=== PATIENT | female | born 1985 | race Hispanic/Latino ===

== ENCOUNTER → 2016-05-30 | Outpatient (CLI) | payer OTHER ==
--- NOTE | 2016-05-30 12:46 | Diagnostic Imaging Report ---
INDICATION: survey. COMPARISON: 03/23/2016. FINDINGS: A winters gestation is currently in breech position. Anterior placenta appears normal. There is no abruption or previa. Amniotic fluid volume visually appears to be within normal limits. No pathological finding at the anatomical survey revealed. Gestation measures 19 weeks 6 days reflecting normal growth from initial study. IMPRESSION: Winters gestation measuring 19 weeks 6 days is in breech position with a normal anatomical survey. Dictated by: Dictated on workstation # [id number]
== END ==
LOC: RAD 09:30
PROVIDERS: ATTEND Family Medicine
DX: Z34.92 Encounter for supervision of normal pregnancy, unspecified, second trimester (principal)
CPT/HCPCS: 76805

== ENCOUNTER 2016-08-23 05:04 | Outpatient (CLI) | payer OTHER ==
[~2016-08-23] VITALS: Ht 172.7 cm; Wt 117.5 kg
[2016-08-23 05:28] VITALS: BP 131/75
[2016-08-23 05:40] LABS: BILIRUBIN,URINE NEGATIVE (NEGATIVE); KETONES,URINE NEGATIVE (NEGATIVE); LEUKOCYTE ESTERASE ,URINE NEGATIVE (NEGATIVE); NITRITE,URINE NEGATIVE (NEGATIVE); PH,URINE 7 (5-9); PROTEIN,URINE NEGATIVE (NEGATIVE); UROBILINOGEN,URINE NORMAL (NORMAL)
[2016-08-23] MEDS ORDERED: morphine INJ 4 MG/ML 1 ML (VIAL/SYRINGE) IVP PRN (06:00)
[2016-08-23] MEDS ORDERED: NS IV 1000 ML 1,000 ML ONE (06:04)
[2016-08-23] MEDS ORDERED: morphine PF (DURAMORPH) 10 MG/10 ML AMP ONE (06:20)
[2016-08-23 06:27] LABS: BASOPHILS % (AUTO) 0 % (0-10); EOSINOPHILS # (AUTO) 0.1 10^3/uL (0.0-0.3); EOSINOPHILS % (AUTO) 1 % (0-10); LYMPHOCYTES # (AUTO) 1.4 X 10^3 (1.0-4.0); LYMPHOCYTES % (AUTO) 13 % (12-44); MEAN CORPUSCULAR HEMOGLOBIN 30 PG (25-34); MEAN CORPUSCULAR HGB CONC 34 G/DL (32-36); MEAN CORPUSCULAR VOLUME 90 FL (80-99); MONOCYTES # (AUTO) 0.8 X 10^3 (0.0-1.0); MONOCYTES % (AUTO) 7 % (0-12); NEUTROPHILS # (AUTO) 8.4 X 10^3 (1.8-7.8); NEUTROPHILS % (AUTO) 79 % (42-75); PLATELET COUNT 222 10^3/uL (130-400); RED CELL DISTRIBUTION WIDTH 13.4 % (10.0-14.5); WHITE BLOOD COUNT 10.7 10^3/uL (4.3-11.0)
[2016-08-23 06:47] LABS: ALANINE AMINOTRANSFERASE 16 U/L (0-55); ALBUMIN 3.1 G/DL (3.2-4.5); ANION GAP 8 MMOL/L (5-14); ASPARTATE AMINO TRANSFERASE 14 U/L (5-34); BILIRUBIN,TOTAL 0.2 MG/DL (0.1-1.0); BLOOD UREA NITROGEN 12 MG/DL (7-18); BUN/CREATININE RATIO 20; CALCIUM 8.6 MG/DL (8.5-10.1); CARBON DIOXIDE 21 MMOL/L (21-32); CHLORIDE 109 MMOL/L (98-107); CREATININE SERUM 0.61 MG/DL (0.60-1.30); GFR ESTIMATED > 60; GLUCOSE 112 MG/DL (70-105); POTASSIUM 3.8 MMOL/L (3.6-5.0); SODIUM 138 MMOL/L (135-145); TOTAL PROTEIN 5.9 G/DL (6.4-8.2)
[2016-08-23 07:43] VITALS: BP 110/62
--- NOTE | 2016-08-23 10:08 | Clinic Account Progress/Dx ---
Clinic Account Progress/Dx DIAGNOSIS: Diagnosis 1. 31w1d GA 2. R flank pain - resolved MIKE SANTOS DO Aug 23, 2016 10:08
--- NOTE | 2016-08-23 10:10 | Discharge Instructions ---
Discharge Inst-[facility] Follow Up/Instructions Goal/Follow Up: With Dr. Khan 09/05/16 as scheduled or sooner as needed. Activity Activity: Activity as Tolerated Diet Discharge Diet: No Restrictions Symptoms to Report to : Pain Increased, Fever Over 101 Degrees F, Urination Difficulty For Any Problems or Questions: Contact Your Physician MIKE SANTOS DO Aug 23, 2016 10:09
== END 2016-08-23 10:20 | disposition home or self-care (01) ==
LOC: WSo 05:04 → LDRP 05:05 → WSo 10:20
PROVIDERS: ATTEND Family Medicine
DX: O99.89 Other specified diseases and conditions complicating pregnancy, childbirth and the puerperium (principal); R10.84 Generalized abdominal pain; Z3A.31 31 weeks gestation of pregnancy
CPT/HCPCS: 36415; 80053; 81000; 85025; 87088; 96361; 96374; 99213

== ENCOUNTER 2016-10-21 07:08 | Outpatient (CLI) | payer OTHER ==
[~2016-10-21] VITALS: Ht 172.7 cm; Wt 121.6 kg
[2016-10-21 07:10] VITALS: BP 129/81
--- NOTE | 2016-10-22 13:30 | Physician Query-Final Dx ---
ANJELICA OLSON 10/22/16 1330: Clinic Account Progress/Dx Physician Query: Please give diagnosis Date of Service Oct 21, 2016 at 07:08 KARINA HUGHES MD 10/30/163: Clinic Account Progress/Dx DIAGNOSIS: Diagnosis 39 weeks gestation Contractions without active labor ANJELICA OLSON Oct 22, 2016 13:30 KARINA HUGHES MD Oct 30, 2016 20:53
== END 2016-10-21 08:05 | disposition home or self-care (01) ==
LOC: WSo 07:08 → LDRP 07:09 → WSo 08:05
PROVIDERS: ATTEND Family Medicine
DX: O47.1 False labor at or after 37 completed weeks of gestation (principal); Z3A.39 39 weeks gestation of pregnancy
CPT/HCPCS: 99213

== ENCOUNTER 2016-10-23 01:26 | Inpatient (IN) | payer OTHER ==
[2016-10-23] MEDS ORDERED: MINERAL OIL CONCENTRATE 99.9% 15 ML UDC TOP PRN (09:15)
[2016-10-23] MEDS ORDERED: CATHETER FLUSH 10 ML SYR IV PRN (09:15)
[2016-10-23] MEDS ORDERED: OXYTOCIN/NORMAL SALINE 500 ML IV SCH ×2 (09:15→19:38)
[2016-10-23] MEDS ORDERED: D5 LR IV SOLUTION 1,000 ML IV ONE (09:21)
[2016-10-23] MEDS: D5 LR IV SOLUTION 1,000 ML IV SCH ×2 (09:29→17:22)
[2016-10-23] MEDS ORDERED: LIDOCAINE/EPI 1%-1:200,000 (XYLOCAINE) 30 ML VIAL INJ PRN (09:30)
[2016-10-23] MEDS ORDERED: PREN1TAB86 PO (09:34)
[2016-10-23] MEDS ORDERED: SUFENTA 0.6MCG/ML BUPIVA 0.125 100 ML ONE (09:52)
[2016-10-23] MEDS ORDERED: LACTATED RINGERS 1,000 ML IV ONE ×2 (09:52→11:04)
[2016-10-23] MEDS ORDERED: BUPIVACAINE 0.25% 30 ML (SENSORCAINE) VIAL ONE (10:32)
[2016-10-23] MEDS ORDERED: NALOXONE 0.4 MG/ML 1 ML (NARCAN) VIAL IV PRN (11:15)
[2016-10-23] MEDS ORDERED: EPIDURAL (SUFENTA 0.6MCG/ML BUPIVA 0.125%) 100 ML BAG EPI SCH (11:15)
[2016-10-23] MEDS ORDERED: ONDANSETRON 4 MG/2 ML (SDV) Z0FRAN IV PRN (11:15)
[2016-10-23] MEDS ORDERED: ACETAMINOPHEN 500 MG TAB (TYLENOL) PO ONE (15:30)
[2016-10-23] MEDS ORDERED: LACTATED RINGERS 1,000 ML IV PRN (17:39)
[2016-10-23] MEDS ORDERED: CITRIC ACID/SOB CIT (BICITRA) 30 ML UDC PO ONE (17:45)
[2016-10-23] MEDS ORDERED: AZITHROMYCIN INJECTION 500 MG in NS (IVPB) 250 ML IV ONE ×4 (17:45)
[2016-10-23] MEDS ORDERED: METOCLOPRAMIDE INJ 10 MG/2 ML (REGLAN) IV ONE (17:45)
[2016-10-23] MEDS ORDERED: FAMOTIDINE 20MG/2ML IV (PEPCID) IV ONE (17:45)
[2016-10-23] MEDS ORDERED: ceFAZolin 2 GM/50 ML NS 50 ML IV ONE ×2 (17:45)
[2016-10-23] MEDS ORDERED: AZITHROMYCIN 500 MG (ZITHROMAX) VIAL ONE (17:54)
[2016-10-23] MEDS ORDERED: NS (IVPB) 250 ML ONE (17:59)
[2016-10-23] MEDS ORDERED: fentaNYL INJECTION 100 MCG/2 ML AMP ONE (18:11)
[2016-10-23] MEDS ORDERED: LIDOCAINE PF 2% 10 ML (XYLOCAINE) AMP ONE (18:11)
[2016-10-23] MEDS ORDERED: BUPIVACAINE 0.5% 30 ML (SENSORCAINE) VIAL ONE (18:11)
[2016-10-23] MEDS ORDERED: OXYTOCIN/NORMAL SALINE 500 ML IV ONE ×2 (18:13)
[2016-10-23] MEDS ORDERED: ONDANSETRON 4 MG/2 ML (SDV) Z0FRAN ONE (18:13)
[2016-10-23] MEDS: KETOROLAC 30 MG/ML VIAL IVP SCH (19:30)
[2016-10-23] MEDS ORDERED: D5 LR IV SOLUTION 1,000 ML IV SCH (19:38)
[2016-10-23] MEDS ORDERED: TETANUS,DIPTH,PERTUSS P/F (BOOSTRIX) 0.5 ML VIAL IM SCH (19:45)
[2016-10-23] MEDS ORDERED: MEASLES,MUMPS,RUBELLA 1 EA INJ SC SCH (19:45)
[2016-10-23] MEDS ORDERED: ONDANSETRON 4 MG/2 ML (SDV) Z0FRAN IVP PRN (19:45)
[2016-10-23] MEDS ORDERED: morphine INJ 10 MG/ML 1ML (SYR OR VIAL) IVP PRN (19:45)
[2016-10-23] MEDS ORDERED: MEPERIDINE (DEMEROL) INJ 50 MG/ML IVP PRN (19:45)
[2016-10-23] MEDS ORDERED: HYDROmorphone (DILAUDID) 2 MG/ML VIAL IVP PRN (19:45)
[2016-10-23] MEDS ORDERED: CATHETER FLUSH 10 ML SYR IV SCH (22:00)
[2016-10-24] MEDS: HYDROcodone/APAP 5 MG/325 MG (LORTAB) TAB PO PRN ×4 (00:53→22:14)
[2016-10-24] MEDS: KETOROLAC 30 MG/ML VIAL IVP SCH ×3 (00:53→19:55)
[2016-10-24] MEDS: DOCUSATE SODIUM 100 MG (COLACE) CAP PO SCH ×3 (00:53→20:19)
[2016-10-24] MEDS: ENOXAPARIN 40 MG/0.4 ML (LOVENOX) SYR SC SCH (10:41)
[2016-10-24] MEDS: FERROUS SULF 325 MG (IRON) TAB PO SCH (10:41)
[2016-10-24] MEDS ORDERED: IBUPROFEN 600 MG (MOTRIN) TAB PO ONE (13:30)
[2016-10-24] MEDS: IBUPROFEN 600 MG (MOTRIN) TAB PO SCH ×2 (14:02→20:19)
[2016-10-25] MEDS: HYDROcodone/APAP 5 MG/325 MG (LORTAB) TAB PO PRN (01:49)
[2016-10-25] MEDS: IBUPROFEN 600 MG (MOTRIN) TAB PO SCH ×2 (01:49→10:02)
[2016-10-25] MEDS ORDERED: DOCU100C37 PO (06:19)
[2016-10-25] MEDS ORDERED: FERR-74 PO (06:19)
[2016-10-25] MEDS ORDERED: IBUP-1773 PO (06:19)
[2016-10-25] MEDS ORDERED: HYDR-3812 PO (09:35)
[2016-10-25] MEDS: FERROUS SULF 325 MG (IRON) TAB PO SCH (10:01)
[2016-10-25] MEDS: DOCUSATE SODIUM 100 MG (COLACE) CAP PO SCH (10:01)
[2016-10-25] MEDS: ENOXAPARIN 40 MG/0.4 ML (LOVENOX) SYR SC SCH (10:02)
== END 2016-10-25 14:15 | disposition home or self-care (01) | DRG 765 ==
DX: O99.213 Obesity complicating pregnancy, third trimester (principal); E66.9 Obesity, unspecified; Z68.41 Body mass index [BMI] 40.0-44.9, adult; O99.03 Anemia complicating the puerperium; D62 Acute posthemorrhagic anemia; O33.9 Maternal care for disproportion, unspecified; Z3A.40 40 weeks gestation of pregnancy; Z37.0 Single live birth

== ENCOUNTER 2016-11-13 23:33 | Emergency (ER) | payer SELFPAY ==
[~2016-11-13] VITALS: Ht 165.1 cm; Wt 108.0 kg
[~2016-11-13 23:33] MED LIST: DOCU100C37 PO; FERR-74 PO; HYDR-3812 PO; IBUP-1773 PO; PREN1TAB86 PO
[2016-11-14] MEDS ORDERED: ANTACID SUSP 30 ML UDC (MYLANTA) PO ONE (01:15)
[2016-11-14] MEDS ORDERED: LIDOCAINE 2% VISCOUS 15 ML UDC PO ONE (01:15)
[2016-11-14] MEDS ORDERED: OMEP20TA7 PO (01:59)
--- NOTE | 2016-11-14 01:59 | ED Abdominal Pain ---
General Chief Complaint: Abdominal/GI Problems Stated Complaint: UPPER ABD PAIN Nursing Triage Note: PT TO ED 8 W/ C/O UPPER ABD/EPIGASTRIC PAIN ONSET EARLIER TODAY. PT REPORTS HAS BEEN ON ET OFF SINCE HAVING C SECTION X3 WKS AGO. STATES PAIN RADIATES THROUGH TO BACK. NO OTHER C/O VOICED Sepsis Screen: No Definite Risk Source of Information: Patient Exam Limitations: No Limitations History of Present Illness Time Seen By Provider: 00:40 Initial Comments This 31-year-old young lady presents to emergency room with epigastric pain that started about 3 weeks ago after having a section. Pain feels better after eating. She has no nausea or vomiting. No diarrhea or constipation. Last bowel movement was around noon and was normal. She is afebrile. She took one ibuprofen at 22:00 which was not helpful. Last food was potatoes and beans at 18:00. Patient was seen and examined with REN Malave. Allergies and Home Medications Allergies Coded Allergies: No Known Drug Allergies (Unverified , 08/23/16) Home Medications Docusate Sodium 100 Mg Capsule, 100 MG PO BID, #60 Prescribed by: RAJESH RICCI on 10/25/16 0619 Ferrous Sulfate 325 Mg Tablet, 325 MG PO DAILY@0900, #60 Prescribed by: RAJESH RICCI on 10/25/16 0619 Hydrocodone/Acetaminophen 1 Each Tablet, 1-2 TAB PO Q4H PRN for PAIN-MODERATE, # 45 Prescribed by: RAJESH RICCI on 10/25/16 0935 Ibuprofen 600 Mg Tablet, 600 MG PO Q6H, #60 Prescribed by: RAJESH RICCI on 10/25/16 0619 Omeprazole 20 Mg Tablet.dr, 20 MG PO BID, #30 Prescribed by: WILIAM MARIN on 11/14/16 0159 Vit W-Ca,Fe,FA(<1 mg) 1 Each Tablet, 1 EACH PO DAILY, (Reported) Review of Systems Constitutional: no symptoms reported EENTM: No Symptoms Reported Respiratory: No Symptoms Reported Cardiovascular: No Symptoms Reported Gastrointestinal: See HPI Genitourinary: No Symptoms Reported Musculoskeletal: no symptoms reported Skin: no symptoms reported Psychiatric/Neurological: No Symptoms Reported Endocrine: No Symptoms Reported Past Hahazbj-Usbeho-Uqelww Hx Patient Social History Alcohol Use: Denies Use Recreational Drug Use: No Smoking Status: Never a Smoker 2nd Hand Smoke Exposure: No Recent Foreign Travel: No Contact w/Someone Who Travel: No Recent Infectious Disease Expo: No Recent Hopitalizations: Yes Immunizations Up To Date Tetanus Booster (TDap): Less than 5yrs Seasonal Allergies Seasonal Allergies: No Surgeries HX Surgeries: Yes Surgeries: Section Respiratory Hx Respiratory Disorders: No Cardiovascular Hx Cardiac Disorders: No Neurological Hx Neurological Disorders: No Reproductive System : No Sexually Transmitted Disease: No HIV/AIDS: No Female Reproductive Disorders: Denies Genitourinary Hx Genitourinary Disorders: Yes Genitourinary Disorders: Kidney Infection Gastrointestinal Hx Gastrointestinal Disorders: No Musculoskeletal Hx Musculoskeletal Disorders: No Endocrine Hx Endocrine Disorders: No HEENT HX ENT Disorders: No Loss of Vision: Denies Hearing Impairment: Denies Cancer Hx Cancer: No Blood Transfusions Adverse Reaction to a Blood Tr: No Family Medical History Family Medial History: Patient reports no known family medical history. Physical Exam Vital Signs VS - Last 72 Hours, by Label 11/14/16 11/14/16 00:05 02:17 Temp 97.0 Pulse 80 86 Resp 20 18 B/P (MAP) 140/96 Pulse Ox 99 99 O2 Delivery Room Air Room Air Capillary Refill : Less Than 3 Seconds General Appearance: WD/WN, no apparent distress HEENT: PERRL/EOMI, normal ENT inspection, pharynx normal Neck: normal inspection Respiratory: lungs clear, normal breath sounds, no respiratory distress, no accessory muscle use Cardiovascular: regular rate, rhythm, no edema, no murmur Gastrointestinal: normal bowel sounds, soft, tenderness (Epigastric) Extremities: normal inspection, no pedal edema Back: normal inspection Neurologic/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 nml as tested, no motor/sensory deficits, alert, normal mood/affect, oriented x 3 Skin: normal color, warm/dry Progress/Results/Core Measures Results/Orders My Orders Orders - WILIAM VIDAL MD Lidocaine 2% Viscous 15 Ml (Xylocaine Vi (11/14/16 01:15) Antacid Suspension (Mylanta Suspension (11/14/16 01:15) Pantoprazole Tablet (Protonix Tablet) (11/14/16 02:00) Medications Given in ED Current Medications Medications Dose Ordered Sig/Jayesh Route Start Time Stop Time Status Last Admin Dose Admin Al Hydrox/Mg Hydrox/Simethicone 30 ml ONCE ONCE PO 11/14/16 01:15 11/14/16 01:16 DC 11/14/16 01:30 30 ML Lidocaine HCl 15 ml ONCE ONCE PO 11/14/16 01:15 11/14/16 01:16 DC 11/14/16 01:30 15 ML Pantoprazole Sodium 40 mg ONCE ONCE PO 11/14/16 02:00 11/14/16 02:01 DC 11/14/16 02:17 40 MG Vital Signs/I&O Vital Sign - Last 12Hours 11/14/16 11/14/16 00:05 02:17 Temp 97.0 Pulse 80 86 Resp 20 18 B/P (MAP) 140/96 Pulse Ox 99 99 O2 Delivery Room Air Room Air Blood Pressure Mean: 111 Progress Note : Progress Note Pain improved from 10 down to 5/10 after GI cocktail. Protonix was given prior to dismissal. See discharge instructions. Departure Impression Impression: Primary Impression: Epigastric pain Disposition: HOME, SELF-CARE Condition: Improved Departure-Patient Inst. Decision time for Depature: 01:50 Referrals: NILE MEDEL MD (PCP/Family) Primary Care Physician Patient Instructions: Acute Abdomen (Belly Pain), Adult (DC), Gastritis (DC) Add. Discharge Instructions: Take omeprazole as prescribed. Avoid the following: Large meals, eating close to bedtime, carbonation, caffeine , chocolate, tobacco products, alcohol, spicy foods, tomato products, citrus fruits and juices, mints, NSAID medications such as ibuprofen or naproxen, or anything else you know irritates your stomach. Follow-up with your doctor in 1-2 weeks. Return to the emergency room if symptoms worsen. All discharge instructions reviewed with patient and/or family. Voiced understanding. Scripts Omeprazole (Omeprazole) 20 Mg Tablet. 20 MG PO BID, #30 TAB Prov: WILIAM VIDAL MD 11/14/16 WILIAM VIDAL MD Nov 14, 2016 01:59
[2016-11-14] MEDS ORDERED: PANTOPRAZOLE 40 MG (PROTONIX) TAB PO ONE (02:00)
[2016-11-14 02:17] VITALS: BP 137/86
== END 2016-11-14 02:17 | disposition home or self-care (01) ==
LOC: EDUNIT# 23:33 → ER 23:36
DX: O99.89 Other specified diseases and conditions complicating pregnancy, childbirth and the puerperium (principal); R10.13 Epigastric pain; Z87.59 Personal history of other complications of pregnancy, childbirth and the puerperium
CPT/HCPCS: 99283

== ENCOUNTER 2016-11-24 02:26 | Inpatient (IN) | payer OTHER ==
[~2016-11-24] VITALS: Ht 167.6 cm; Wt 107.5 kg
[~2016-11-24 02:26] MED LIST changes: +OMEP20TA7 PO
[2016-11-24] MEDS ORDERED: SUCR1TAB (02:35)
[2016-11-24] MEDS ORDERED: FAMOTIDINE 20MG/2ML IV (PEPCID) IV STA (02:44)
[2016-11-24] MEDS ORDERED: NS IV 1000 ML 1,000 ML IV STA (02:44)
[2016-11-24 03:04] LABS: BASOPHILS % (AUTO) 0 % (0-10); EOSINOPHILS # (AUTO) 0.1 10^3/uL (0.0-0.3); EOSINOPHILS % (AUTO) 2 % (0-10); LYMPHOCYTES # (AUTO) 1.4 X 10^3 (1.0-4.0); LYMPHOCYTES % (AUTO) 27 % (12-44); MEAN CORPUSCULAR HEMOGLOBIN 29 PG (25-34); MEAN CORPUSCULAR HGB CONC 33 G/DL (32-36); MEAN CORPUSCULAR VOLUME 89 FL (80-99); MEAN PLATELET VOLUME 9.5 FL (7.4-10.4); MONOCYTES # (AUTO) 0.4 X 10^3 (0.0-1.0); MONOCYTES % (AUTO) 8 % (0-12); NEUTROPHILS # (AUTO) 3.2 X 10^3 (1.8-7.8); NEUTROPHILS % (AUTO) 63 % (42-75); PLATELET COUNT 271 10^3/uL (130-400); RED BLOOD COUNT 4.55 10^6/uL (4.35-5.85); RED CELL DISTRIBUTION WIDTH 13.3 % (10.0-14.5); WHITE BLOOD COUNT 5.1 10^3/uL (4.3-11.0)
[2016-11-24 03:24] LABS: ALANINE AMINOTRANSFERASE 711 U/L (0-55); AMYLASE 33 U/L (25-125); ANION GAP 12 MMOL/L (5-14); ASPARTATE AMINO TRANSFERASE 773 U/L (5-34); BILIRUBIN,TOTAL 1.1 MG/DL (0.1-1.0); BLOOD UREA NITROGEN 7 MG/DL (7-18); BUN/CREATININE RATIO 10; CARBON DIOXIDE 21 MMOL/L (21-32); CHLORIDE 107 MMOL/L (98-107); CREATININE SERUM 0.68 MG/DL (0.60-1.30); GFR ESTIMATED > 60; GLUCOSE 108 MG/DL (70-105); LIPASE 21 U/L (8-78); POTASSIUM 3.8 MMOL/L (3.6-5.0); SODIUM 140 MMOL/L (135-145)
--- NOTE | 2016-11-24 03:44 | ED GI ---
General Chief Complaint: Abdominal/GI Problems Stated Complaint: ABD PAIN Nursing Triage Note: c/o epigastric pain patient reports was evaluated here for same pain previosly Sepsis Screen: No Definite Risk Source of Information: Patient Exam Limitations: No Limitations History of Present Illness Time Seen By Provider: 02:55 Initial Comments Here with epigastric pain that has been going on for the last week to 10 days. Does not report that it is worse with meals but nothing is making it better and day today it is getting worse. Pain is greatest in the right upper quadrant. She is status post delivery of a baby one month ago. Reports nausea but no vomiting. She is currently on omeprazole and Carafate or Zantac. Denies fever or chills. Timing/Duration: 1 Week, Getting Worse Severity/Quality: Moderate, Severe, Aching, Burning, Sharp Location: RUQ, Epigastric Radiation: No Radiation Activities at Onset: None Modifying Factors: Worsens With Eating Associated Symptoms: No Back Pain, No Chest Pain, No Fever/Chills, Nausea/ Vomiting, No Shortness of Air, No Swelling/Mass in Abdomen, No Weakness Allergies and Home Medications Allergies Coded Allergies: No Known Drug Allergies (Unverified , 08/23/16) Home Medications Omeprazole 20 Mg Tablet.dr, 20 MG PO BID, #30 Prescribed by: WILIAM MARIN on 11/14/16 0159 Sucralfate 1 Gm Tablet, #60 (Reported) Review of Systems Constitutional: see HPI, No chills, No fever EENTM: No Symptoms Reported Respiratory: No Symptoms Reported Cardiovascular: No Symptoms Reported, Denies Chest Pain, Denies Edema Gastrointestinal: See HPI, Abdominal Pain, Denies Diarrhea, Nausea, Denies Vomiting Genitourinary: No Symptoms Reported Musculoskeletal: no symptoms reported Skin: no symptoms reported All Other Systems Reviewed Negative Unless Noted: Yes Past Szhznag-Lcubow-Rpmqff Hx Patient Social History Alcohol Use: Denies Use Recreational Drug Use: No Smoking Status: Never a Smoker 2nd Hand Smoke Exposure: No Recent Foreign Travel: No Contact w/Someone Who Travel: No Recent Infectious Disease Expo: No Recent Hopitalizations: Yes Immunizations Up To Date Tetanus Booster (TDap): Less than 5yrs Seasonal Allergies Seasonal Allergies: No Surgeries HX Surgeries: Yes Surgeries: Section Respiratory Hx Respiratory Disorders: No Cardiovascular Hx Cardiac Disorders: No Neurological Hx Neurological Disorders: No Reproductive System Sexually Transmitted Disease: No HIV/AIDS: No Female Reproductive Disorders: Denies Genitourinary Hx Genitourinary Disorders: Yes Genitourinary Disorders: Kidney Infection Gastrointestinal Hx Gastrointestinal Disorders: No Musculoskeletal Hx Musculoskeletal Disorders: No Endocrine Hx Endocrine Disorders: No HEENT HX ENT Disorders: No Loss of Vision: Denies Hearing Impairment: Denies Cancer Hx Cancer: No Blood Transfusions Adverse Reaction to a Blood Tr: No Reviewed Nursing Assessment Reviewed/Agree w Nursing PMH: Yes Family Medical History Significant Family History: No Pertinent Family Hx Family Medial History: Patient reports no known family medical history. Physical Exam Vital Signs VS - Last 72 Hours, by Label 11/24/16 02:32 Temp 98.2 Pulse 67 Resp 18 B/P (MAP) 110/85 Pulse Ox 98 Capillary Refill : Less Than 3 Seconds General Appearance: WD/WN, no apparent distress HEENT: PERRL/EOMI, pharynx normal Neck: full range of motion, supple Respiratory: lungs clear, normal breath sounds Cardiovascular: regular rate, rhythm, no murmur Peripheral Pulses: 2+ Dorsalis Pedis (R), 2+ Left Dors-Pedis (L), 2+ Radial Pulses (R), 2+ Radial Pulses (L) Gastrointestinal: soft, No guarding, No rebound, tenderness (right upper quadrant and epigastric) Extremities: non-tender, normal inspection Back: normal inspection, no CVA tenderness, no vertebral tenderness Neurologic/Psychiatric: alert, oriented x 3 Skin: normal color, warm/dry Progress/Results/Core Measures Results/Orders Lab Results Laboratory Tests Test 11/24/16 02:55 Range/Units White Blood Count 5.1 4.3-11.0 10^3/uL Red Blood Count 4.55 4.35-5.85 10^6/uL Hemoglobin 13.1 11.5-16.0 G/DL Hematocrit 40 35-52 % Mean Corpuscular Volume 89 80-99 FL Mean Corpuscular Hemoglobin 29 25-34 PG Mean Corpuscular Hemoglobin Concent 33 32-36 G/DL Red Cell Distribution Width 13.3 10.0-14.5 % Platelet Count 271 130-400 10^3/uL Mean Platelet Volume 9.5 7.4-10.4 FL Neutrophils (%) (Auto) 63 42-75 % Lymphocytes (%) (Auto) 27 12-44 % Monocytes (%) (Auto) 8 0-12 % Eosinophils (%) (Auto) 2 0-10 % Basophils (%) (Auto) 0 0-10 % Neutrophils # (Auto) 3.2 1.8-7.8 X 10^3 Lymphocytes # (Auto) 1.4 1.0-4.0 X 10^3 Monocytes # (Auto) 0.4 0.0-1.0 X 10^3 Eosinophils # (Auto) 0.1 0.0-0.3 10^3/uL Basophils # (Auto) 0.0 0.0-0.1 10^3/uL Sodium Level 140 135-145 MMOL/L Potassium Level 3.8 3.6-5.0 MMOL/L Chloride Level 107 98-107 MMOL/L Carbon Dioxide Level 21 21-32 MMOL/L Anion Gap 12 5-14 MMOL/L Blood Urea Nitrogen 7 7-18 MG/DL Creatinine 0.68 0.60-1.30 MG/DL Estimat Glomerular Filtration Rate > 60 BUN/Creatinine Ratio 10 Glucose Level 108 H 70-105 MG/DL Calcium Level 9.0 8.5-10.1 MG/DL Total Bilirubin 1.1 H 0.1-1.0 MG/DL Aspartate Amino Transf (AST/SGOT) 773 H 5-34 U/L Alanine Aminotransferase (ALT/SGPT) 711 H 0-55 U/L Alkaline Phosphatase 405 H 40-136 U/L Total Protein 7.0 6.4-8.2 GM/DL Albumin 4.0 3.2-4.5 GM/DL Amylase Level 33 25-125 U/L Lipase 21 8-78 U/L My Orders Orders - STEPHEN BARCENAS MD Amylase (11/24/16 02:44) Cbc With Automated Diff (11/24/16 02:44) Comprehensive Metabolic Panel (11/24/16 02:44) Lipase (11/24/16 02:44) Ns Iv 1000 Ml (Sodium Chloride 0.9%) (11/24/16 02:44) Famotidine Injection (Pepcid Injection) (11/24/16 02:44) Saline Lock/Iv-Start (11/24/16 02:44) Us Gallbladder [id number] (11/24/16 03:32) Fentanyl Injection (Sublimaze Injection (11/24/16 04:35) Zofran Iv (11/24/16 04:45) Vital Signs/I&O Vital Sign - Last 12Hours 11/24/16 02:32 Temp 98.2 Pulse 67 Resp 18 B/P (MAP) 110/85 Pulse Ox 98 Blood Pressure Mean: 93 Progress Note : Progress Note Seen and evaluated. IV, labs, normal saline 1 L bolus and Pepcid 20 mg IV ordered. Bedside ultrasound done and there is concerns for gallstones within the bladder neck. Labs do not indicate liver dysfunction. Formal ultrasound ordered. Monitor patient. 0430: I discussed the case with Dr. Reyes as formal ultrasound does show multiple stones as well as ductile dilation of 1 cm. There is no pericholecystic fluid. He would like patient to be admitted with likely surgery tomorrow. I did discuss this with the patient who agrees. Fentanyl 75 g IV ordered and Zofran 4 mg IV ordered for pain and nausea. Admit , inpatient status. Patient agrees to plan. Diagnostic Imaging Diagonstic Imaging: Ultrasound Plain Films/CT/US/NM/MRI: abdomen Comments Gallbladder ultrasound shows gallstones and dilated bile duct without pericholecystic fluid or gallbladder wall thickening per preliminary reading. Departure Communication Time/Spoke to Admitting Phy: 04:27 Impression Impression: Primary Impression: Cholelithiasis and cholecystitis with obstruction Qualified Codes: K80.01 - Calculus of gallbladder with acute cholecystitis with obstruction Additional Impression: Transaminitis Disposition: ADMITTED INPATIENT Condition: Stable Decision to Admit Reason: Admit from ER (General) Decision to Admit/Date: Nov 24, 2016 Time/Decision to Admit Time: 04:27 Departure-Patient Inst. Referrals: NILE MEDEL MD (PCP/Family) Primary Care Physician STEPHEN BARCENAS MD Nov 24, 2016 03:43
[2016-11-24] MEDS ORDERED: fentaNYL INJECTION 100 MCG/2 ML AMP IVP STA (04:35)
[2016-11-24] MEDS ORDERED: ONDANSETRON 4 MG/2 ML (SDV) Z0FRAN IVP ONE (04:45)
[2016-11-24] MEDS ORDERED: CATHETER FLUSH 10 ML SYR IV PRN (05:30)
[2016-11-24] MEDS: CATHETER FLUSH 10 ML SYR IV SCH ×3 (05:30→22:29)
[2016-11-24] MEDS: NS IV 1000 ML 1,000 ML IV SCH ×2 (05:30→15:50)
--- NOTE | 2016-11-24 06:24 | Diagnostic Imaging Report ---
PROCEDURE: US Gallbladder. TECHNIQUE: Multiple real-time grayscale images were obtained over the right upper quadrant in various projections. INDICATION: Right upper quadrant abdominal pain Liver parenchyma is homogeneous with normal echotexture. There are multiple small stones in the gallbladder. Gallbladder wall is not abnormally thickened. The common duct is dilated. Pancreas is obscured by bowel gas. Right kidney measures 11.4 cm in length and appears normal. Patient has positive sonographic Camacho sign. IMPRESSION: Cholecystolithiasis with positive sonographic Camacho sign and dilated common duct. Findings are suspicious for acute cholecystitis. Dictated by: Dictated on workstation # [id number]
[2016-11-24 08:00] VITALS: BP 113/61
[2016-11-24] MEDS: ONDANSETRON 4 MG/2 ML (SDV) Z0FRAN IV PRN (09:05)
[2016-11-24] MEDS: fentaNYL INJECTION 100 MCG/2 ML AMP IV PRN (09:06)
--- NOTE | 2016-11-24 11:04 | History & Physicial ---
History of Present Illness History of Present Illness Reason for visit/HPI Patient was seen with Dr. Gustafson. This is a 31 year old female who presented to [facility] this morning with complaints of RUQ pain for the past 10 days. Patient reports that initially this was intermittent but became more severe and more frequent as time progressed. She also reports episodes of N/V and Reflux and reports that she takes omeprazole daily and took zantac last night without any relief. She reports that the pain also radiates toward her back. She denied any fever/chills as well as no diarrhea or constipation. She reports that she cannot recall any association between food and her symptoms. She is 1 month S/P . Ultrasound did show cholelithiasis. Date of Admission Nov 24, 2016 at 4:40 am Date Seen by Provider: Nov 24, 2016 Time Seen by Provider: 10:00 I consulted on this patient on 11/24/16 10:57 Attending Physician Ashley Gustafson MD Admitting Physician Liss Khan MD Consult Allergies and Home Medications Allergies Coded Allergies: No Known Drug Allergies (Unverified , 08/23/16) Home Medications Hydrocodone/Acetaminophen 1 Each Tablet, 1-2 EACH PO Q4H, #35 Prescribed by: ASHLEY GUSTAFSON on 11/25/16 1504 Past Lkjrngi-Maggol-Epolab Hx Patient Social History Alcohol Use: Denies Use Recreational Drug Use: No Smoking Status: Never a Smoker 2nd Hand Smoke Exposure: No Physical Abuse Screen: No Sexual Abuse: No Recent Foreign Travel: No Contact w/other who traveled: No Recent Hopitalizations: Yes Recent Infectious Disease Expo: No Immunizations Up To Date Tetanus Booster (TDap): Less than 5yrs Seasonal Allergies Seasonal Allergies: No Surgeries HX Surgeries: Yes Surgeries: Section Respiratory Hx Respiratory Disorders: No Cardiovascular Hx Cardiovascular Disorders: No Neurological Hx Neurological Disorders: No Reproductive System Sexually Transmitted Disease: No HIV/AIDS: No Female Reproductive Disorders: Denies Genitourinary Hx Genitourinary Disorders: Yes Genitourinary Disorders: Kidney Infection Gastrointestinal Hx Gastrointestinal Disorders: No Musculoskeletal Hx Musculoskeletal Disorders: No Endocrine Hx Endocrine Disorders: No HEENT HX ENT Disorders: No Loss of Vision: Denies Hearing Impairment: Denies Cancer Hx Cancer: No Blood Transfusions Adverse Reaction to a Blood Tr: No Reviewed Nursing Assessment Reviewed/Agree w Nursing PMH: Yes Family Medical History Significant Family History: No Pertinent Family Hx Family Hx: Patient reports no known family medical history. Constitutional: no symptoms reported EENTM: no symptoms reported Respiratory: no symptoms reported Cardiovascular: no symptoms reported Gastrointestinal: RUQ, heartburn, nausea, vomiting (Pain) Genitourinary: no symptoms reported : No Musculoskeletal: no symptoms reported Skin: no symptoms reported Psychiatric/Neurological: No Symptoms Reported Physical Exam Vital Signs Vital Sign - Last 12Hours 11/24/16 11/24/16 02:32 05:47 Temp 98.2 Pulse 67 Resp 18 B/P (MAP) 110/85 Pulse Ox 98 O2 Delivery Room Air Capillary Refill : Less Than 3 Seconds General Appearance: No Apparent Distress, WD/WN HEENT: PERRL/EOMI Neck: Full Range of Motion, Normal Inspection, Non Tender, Supple Respiratory: Chest Non Tender, Lungs Clear, Normal Breath Sounds, No Accessory Muscle Use, No Respiratory Distress Cardiovascular: Regular Rate, Rhythm, No Murmur Gastrointestinal: Normal Bowel Sounds, No Organomegaly, No Pulsatile Mass, Soft , Tenderness (RUQ and Epigastric region) Back: Normal Inspection, No CVA Tenderness, No Vertebral Tenderness Extremity: Normal Capillary Refill, Normal Inspection, Normal Range of Motion, Non Tender, No Calf Tenderness Neurologic/Psychiatric: Alert, Oriented x3 Skin: Normal Color, Warm/Dry Lymphatic: No Adenopathy Assessment/Plan Assessment and Plan A 31 year old female with symptomatic cholelithiasis. CBC and CMP tomorrow morning. IV fluids and Abx. Pain and Nausea medication. PUD prophylaxis. Clear liquid diet. NPO on 11/25 at 0200. Will schedule for Lap marianela tomorrow AM. Problems: Clinical Quality Measures DVT/VTE Risk/Contraindication: Risk Factor Score Per Nursin RFS Level Per Nursing on Admit: 1=Low/No VTE PPX Copy Copies To 1: ASHLEY GUSTAFSON MD, DUSTIN L APRN Nov 24, 2016 11:04 am
--- NOTE | 2016-11-24 11:39 | Progress Note-Pre Operative ---
Pre-Operative Progress Note H&P Reviewed The H&P was reviewed, patient examined and no changes noted. Date Seen by Provider: Nov 24, 2016 Time Seen by Provider: 11:30 Date H&P Reviewed: Nov 24, 2016 Time H&P Reviewed: :30 Pre-Operative Diagnosis: symptomatic chronic calculous cholecystitis ASHLEY GUSTAFSON MD Nov 24, 2016 11:39 am
[2016-11-24 12:00] VITALS: BP 125/67
[2016-11-24 15:39] VITALS: BP 122/85
[2016-11-24 19:14] VITALS: BP 111/69
[2016-11-25] VITALS: BP 107/67
[2016-11-25 04:00] VITALS: BP 112/68
[2016-11-25 06:26] LABS: BASOPHILS % (AUTO) 0 % (0-10); EOSINOPHILS # (AUTO) 0.2 10^3/uL (0.0-0.3); EOSINOPHILS % (AUTO) 4 % (0-10); LYMPHOCYTES # (AUTO) 1.9 X 10^3 (1.0-4.0); LYMPHOCYTES % (AUTO) 40 % (12-44); MEAN CORPUSCULAR HEMOGLOBIN 29 PG (25-34); MEAN CORPUSCULAR HGB CONC 32 G/DL (32-36); MEAN CORPUSCULAR VOLUME 90 FL (80-99); MEAN PLATELET VOLUME 9.7 FL (7.4-10.4); MONOCYTES # (AUTO) 0.3 X 10^3 (0.0-1.0); MONOCYTES % (AUTO) 6 % (0-12); NEUTROPHILS # (AUTO) 2.4 X 10^3 (1.8-7.8); NEUTROPHILS % (AUTO) 50 % (42-75); PLATELET COUNT 247 10^3/uL (130-400); RED BLOOD COUNT 4.13 10^6/uL (4.35-5.85); RED CELL DISTRIBUTION WIDTH 13.5 % (10.0-14.5); WHITE BLOOD COUNT 4.8 10^3/uL (4.3-11.0)
[2016-11-25 06:49] LABS: ALANINE AMINOTRANSFERASE 750 U/L (0-55); ALBUMIN 3.2 GM/DL (3.2-4.5); ANION GAP 11 MMOL/L (5-14); ASPARTATE AMINO TRANSFERASE 396 U/L (5-34); BILIRUBIN,TOTAL 0.9 MG/DL (0.1-1.0); BLOOD UREA NITROGEN 4 MG/DL (7-18); BUN/CREATININE RATIO 7; CARBON DIOXIDE 19 MMOL/L (21-32); CHLORIDE 111 MMOL/L (98-107); CREATININE SERUM 0.61 MG/DL (0.60-1.30); GFR ESTIMATED > 60; GLUCOSE 91 MG/DL (70-105); POTASSIUM 3.6 MMOL/L (3.6-5.0); SODIUM 141 MMOL/L (135-145); TOTAL PROTEIN 5.5 GM/DL (6.4-8.2)
[2016-11-25 08:00] VITALS: BP 118/74
[2016-11-25] MEDS: CATHETER FLUSH 10 ML SYR IV SCH ×3 (08:18→21:40)
[2016-11-25] MEDS ORDERED: MIDAZOLAM 2 MG/2 ML (VERSED) VIAL ONE (11:19)
[2016-11-25] MEDS ORDERED: fentaNYL INJECTION 100 MCG/2 ML AMP ONE (11:19)
[2016-11-25] MEDS: NS IV 1000 ML 1,000 ML IV SCH ×2 (11:41→21:30)
[2016-11-25 12:00] VITALS: BP 103/76
[2016-11-25] MEDS ORDERED: BUP/EPI 0.5% 1:200,000 (MARCAINE) 10ML VIAL IJ ONE (13:44)
[2016-11-25] MEDS: LACTATED RINGERS 1,000 ML IV PRN ×3 (13:46→14:58)
[2016-11-25] MEDS ORDERED: ceFAZolin 1,000 MG (ANCEF) VIAL ONE (14:01)
[2016-11-25] MEDS ORDERED: proPOfol 200 MG/20 ML (DIPRIVAN) VIAL IV ONE ×2 (14:10→15:05)
[2016-11-25] MEDS ORDERED: ONDANSETRON 4 MG/2 ML (SDV) Z0FRAN ONE (14:10)
[2016-11-25] MEDS ORDERED: DEXAMETHASONE PF 10 MG/ML (DECADRON) VIAL ONE (14:10)
[2016-11-25] MEDS ORDERED: LIDOCAINE PF 2% 5 ML (XYLOCAINE) VIAL ONE (14:10)
[2016-11-25] MEDS ORDERED: SEVOFLURANE (ULTANE) 15 ML INHAL SOLN ONE ×2 (14:44)
[2016-11-25] MEDS ORDERED: GLYCOPYRROLATE 0.2 MG/ML (ROBINUL) 2 ML VIAL ONE (14:45)
[2016-11-25] MEDS ORDERED: NEOSTIGMINE (BLOXIVERZ ) 1 MG/1ML 10 ML VIAL ONE (14:45)
[2016-11-25] MEDS ORDERED: ROCURONIUM 50 MG/5 ML (ZEMURON) VIAL IV ONE (14:49)
--- NOTE | 2016-11-25 15:03 | Progress Note-Post Operative ---
Post-Operative Progess Note Surgeon (s)/Billiard Table Assembler (s) Surgeon ASHLEY GUSTAFSON MD Billiard Table Assembler: [facility] [employer] Pre-Operative Diagnosis symptomatic chronic calculous cholecystitis Post-Operative Diagnosis same Procedure & Operative Findings Date of Procedure 11/25/16 Procedure Performed/Findings chronic calculous cholecystitis Anesthesia Type GET Estimated Blood Loss Estimated blood loss (mL): minimal Specimens/Packing Specimens Removed gallbladder ASHLEY GUSTAFSON MD Nov 25, 2016 3:03 pm
[2016-11-25] MEDS ORDERED: HYDR-3816 PO (15:04)
--- NOTE | 2016-11-25 15:05 | Discharge Inst-Surgical ---
D/C Lap Instructions-JANAY New, Converted, or Re-Newed RX: RX on Chart Follow Up Appt in 2 weeks Activity as tolerated No driving for 24 hours No driving while on pain medications Incentive Spirometry use every 2 hours while awake Regular Diet Symptoms to Report: Fever over 101 degree F, Nausea/Vomiting Infection Signs and Symptoms to report: Increased redness, Foul odor of wound, Increased drainage Bathing instructions: May shower Operative Area Clean/Dry; Keep incision clean/dry If any problems/questions: Contact your physician or go to Emergency Room ASHLEY GUSTAFSON MD Nov 25, 2016 3:05 pm
[2016-11-25] MEDS: morphine INJ 10 MG/ML 1ML (SYR OR VIAL) IVP PRN ×2 (15:25→15:30)
[2016-11-25] MEDS ORDERED: HYDROmorphone (DILAUDID) 2 MG/ML VIAL IVP PRN (15:30)
[2016-11-25] MEDS ORDERED: PROMETHAZINE INJ 25 MG/ML (PHENERGAN) AMP IVP PRN (15:30)
[2016-11-25] MEDS ORDERED: ONDANSETRON 4 MG/2 ML (SDV) Z0FRAN IVP PRN (15:30)
[2016-11-25 16:37] VITALS: BP 136/81
[2016-11-25] MEDS: ONDANSETRON 4 MG/2 ML (SDV) Z0FRAN IV PRN (17:26)
[2016-11-25] MEDS: fentaNYL INJECTION 100 MCG/2 ML AMP IV PRN ×2 (17:26→23:26)
[2016-11-25 19:44] VITALS: BP 124/76
[2016-11-26] VITALS: BP 111/78
[2016-11-26 04:00] VITALS: BP 119/70
[2016-11-26] MEDS: fentaNYL INJECTION 100 MCG/2 ML AMP IV PRN ×2 (06:37→09:25)
[2016-11-26] MEDS: CATHETER FLUSH 10 ML SYR IV SCH (06:38)
[2016-11-26 08:00] VITALS: BP 113/58
[2016-11-26 09:51] VITALS: BP 113/58
[2016-11-26] MEDS: NS IV 1000 ML 1,000 ML IV SCH (10:00)
--- NOTE | 2016-11-26 12:10 | OPERATIVE REPORT ---
PROCEDURE PHYSICIAN: ASHLEY REYES DATE OF PROCEDURE: 11/25/2016 ATTENDING PRIMARY CARE PHYSICIAN: Dr. Liss Khan . PREOPERATIVE DIAGNOSIS: Chronic calculus cholecystitis. POSTOPERATIVE DIAGNOSIS: Chronic calculus cholecystitis. PROCEDURE: Laparoscopic cholecystectomy. SURGEON: Dr. Reyes. PROFESSIONAL ORGANIZER: Terrance Qureshi APRN. ANESTHESIA: General endotracheal. ESTIMATED BLOOD LOSS: Minimal. FINDINGS: Chronic gallbladder wall inflammation with multiple small gallstones. DISPOSITION: The patient tolerated the procedure well. Ms. 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 She is by section, approximately 4 weeks ago. She reports that she may have had some mild discomfort at the time however not near as severe as this episode. She also had elevated liver function enzymes at that time; however, this normalize with IV hydration and bowel rest. An ultrasound was performed, which did show mild gallbladder wall thickening, as well as distention and multiple gallstones. The patient was brought to the operating room, laid supine on the table. After adequate IV pain and sedative medications and general endotracheal intubation the abdomen was prepped and draped in standard surgical fashion. 0.5% Marcaine with epinephrine was then used to anesthetize the overlying skin in left upper abdominal quadrant and a small transverse skin incision made using a 15 blade. An 0 silk suture was applied to the medial aspect incision for retraction and a Veress needle inserted with a low opening pressure of 0 mmHg and the abdomen was insufflated to 15 mmHg pressure. The Veress needle removed and a 5 mm Xcel trocar placed followed by a 5 mm, 45 degrees angle laparoscope, visualizing the peritoneal cavity. A four-quadrant abdominal exploration was performed. There was chronic gallbladder wall inflammation with no signs of acute cholecystitis. The liver, small bowel, omentum, and stomach appeared normal. There was slight ductal dilatation most likely physiologic from her recent . Under direct visualization we then proceeded to place a 10 mm port in the supraumbilical region after the skin and peritoneum were anesthetized using 0.5% Marcaine with epinephrine and a transverse skin incision made using a 15 blade. In a similar manner, a right upper abdominal quadrant, 5 mm port was placed. The patient was then placed in reverse Trendelenburg position as well as planed right side up, left side down. The fundus of the gallbladder was then retracted anteriorly and superiorly. The hepatoduodenal ligament was then opened using electrocautery on a hook instrument as well as blunt dissection. The entire critical view of safety was identified and dissected out including the triangle of Calot, the cystic duct and artery going into the gallbladder, as well as the liver behind the proximal gallbladder. A timeout was then taken. The cystic duct and artery were then clipped proximally and distally and cut with Endo Tamiko. The gallbladder was then dissected off the liver bed using electrocautery on the hook instrument with visualization of good hemostasis. The gallbladder was removed through the 10 mm port site using an Endo Catch bag. The fascia and peritoneum to the 10 mm port site was then closed using a Fran-Phuc device and an 0 Vicryl suture. The abdomen was desufflated and the remaining ports removed. All skin incisions were closed using 4-0 Monocryl running subcuticular sutures. Wounds were then cleaned and covered with Dermabond. The patient tolerated the procedure well. We will start IV and oral pain medication as well as a clear liquid diet. Once she is tolerating clears, has good pain control with oral pain medications and ambulating well, we will discharge her home. Job ID: [id number] Dictated Date: 11/25/2016 14:54:36 Roller Checker Date: 11/26/2016 11:59:33 / terrance
== END 2016-11-26 09:51 | disposition home or self-care (01) | DRG 419 ==
LOC: EDUNIT# 02:26 → ER 02:28 → 4TH 04:40 → ENPENDDIS 11-26 10:00
PROVIDERS: ADMIT Surgery; ATTEND Surgery
PROC: 0FT44ZZ Resection of Gallbladder, Percutaneous Endoscopic Approach (ICD-10-PCS; principal; 2016-11-25 13:46)
DX: K80.10 Calculus of gallbladder with chronic cholecystitis without obstruction (principal)
CPT/HCPCS: 36415; 76705; 80053; 82150; 83690; 84703; 85025; 87081; 96374; 96375

== ENCOUNTER 2020-04-02 19:17 | Emergency (ER) | payer SELFPAY ==
[~2020-04-02] VITALS: Ht 167 cm; Wt 120.5 kg
[~2020-04-02 19:17] MED LIST changes: +ACHD5005 PO; -FERR-74 PO; +FERR325T18 PO; +HYDR-34 PO; -HYDR-3812 PO; +SUCR1TAB
[2020-04-02 20:31] LABS: BILIRUBIN,URINE NEGATIVE (NEGATIVE); CLARITY,URINE CLEAR; COLOR,URINE YELLOW; GLUCOSE, URINE (UA) NEGATIVE (NEGATIVE); KETONES,URINE NEGATIVE (NEGATIVE); LEUKOCYTE ESTERASE ,URINE 1+ (NEGATIVE); NITRITE,URINE NEGATIVE (NEGATIVE); PH,URINE 7.5 (5-9); PROTEIN,URINE NEGATIVE (NEGATIVE)
--- NOTE | 2020-04-02 20:41 | ED General ---
General Chief Complaint: Dizziness/Syncope Stated Complaint: HEADACHE/DIZINESS/EAR ACHE Nursing Triage Note: PATIENT HAS BEEN HAVING DIZZINESS FOR YEARS AND TODAY HAS BEEN HAVING INCREASED DIZZINESS WITH PAIN IN HER EARS, FEELING LIKE SHE IS SPINNING TO THE POINT WHERE HER GAIT IS UNSTEADY. Nursing Sepsis Screen: No Definite Risk Source of Information: Patient Exam Limitations: No Limitations History of Present Illness Date Seen by Provider: Apr 02, 2020 Time Seen by Provider: 20:30 Initial Comments This is a well-appearing 34-year-old Non-German speaking female who presents to the ER with complaints of headache, dizziness, bilateral ear pain. States she has been having dizziness, headaches with vertigo and vision changes for over a year. However, today her symptoms are worse. Also reports complaints of dry nose, facial tenderness and bilateral ear pain. She was recently prescribed Meclizine and states this does not help with her symptoms. Currently rates pain 8 out of 10, describes as pulsating sensation in the front of her head to the back of her head. Denies any alleviating or aggravating factors. Denies fevers, chills, cough, shortness of breath, nausea, vomiting, abdominal pain. Allergies and Home Medications Allergies Coded Allergies: topiramate (Verified Allergy, Unknown, 04/02/20) Home Medications Amoxicillin/Potassium Clav 1 Each Tablet, 1 EACH PO BID Prescribed by: MARI WOODARD on 04/02/20 2242 Hydrocodone Bit/Acetaminophen 1 Each Tablet, 1-2 EACH PO Q4H Prescribed by: ASHLEY GUSTAFSON on 11/25/16 1504 Patient Home Medication List Home Medication List Reviewed: Yes Review of Systems Review of Systems Constitutional: see HPI EENTM: see HPI Respiratory: no symptoms reported Cardiovascular: no symptoms reported Gastrointestinal: no symptoms reported Genitourinary: no symptoms reported Musculoskeletal: no symptoms reported Skin: no symptoms reported Psychiatric/Neurological: No Symptoms Reported Hematologic/Lymphatic: No Symptoms Reported Immunological/Allergic: no symptoms reported Past Btpfigv-Spmgky-Wrwrhd Hx Patient Social History Alcohol Use: Denies Use Recreational Drug Use: No 2nd Hand Smoke Exposure: No Recent Foreign Travel: No Contact w/Someone Who Travel: No Recent Infectious Disease Expo: No Recent Hopitalizations: Yes Physical Abuse: No Sexual Abuse: No Mistreated: No Fear: No Immunizations Up To Date Tetanus Booster (TDap): Less than 5yrs Seasonal Allergies Seasonal Allergies: No Past Medical History Surgeries: Yes Section, Gallbladder Respiratory: No Cardiac: No Neurological: No : No (TAKES THE DEPO SHOT, NO REGULAR PERIOD) Female Reproductive Disorders: Denies Sexually Transmitted Disease: No HIV/AIDS: No Genitourinary: Yes (August 2016) Kidney Infection Gastrointestinal: No Musculoskeletal: No Endocrine: No HEENT: No Loss of Vision: Denies Hearing Impairment: Denies Cancer: No Psychosocial: No Integumentary: No Blood Disorders: No Adverse Reaction/Blood Tranf: No Family Medical History Patient reports no known family medical history. No Pertinent Family Hx Physical Exam Vital Signs Vital Signs - First Documented 04/02/20 19:25 Temp 35.8 Pulse 70 Resp 18 B/P (MAP) 135/89 (104) Pulse Ox 100 Capillary Refill : Less Than 3 Seconds Height, Weight, BMI Height: 5'6.00" Weight: 237lbs. 0.0oz. 107.929617kp; 43.00 BMI Method:Stated General Appearance: No Apparent Distress, WD/WN Eyes: Bilateral Eye Normal Inspection, Bilateral Eye PERRL, Bilateral Eye EOMI HEENT: PERRL/EOMI (Negative bilat. [place] Hallpike manuever ), Pharynx Normal, Other (Intact bulging bilateral TM's with no erythema) Neck: Full Range of Motion, Normal Inspection, Non Tender, Supple Respiratory: Lungs Clear, Normal Breath Sounds, No Accessory Muscle Use, No Respiratory Distress Cardiovascular: Regular Rate, Rhythm, No Edema, Normal Peripheral Pulses Gastrointestinal: Normal Bowel Sounds, Non Tender, Soft Back: Normal Inspection, No Vertebral Tenderness Extremity: Normal Capillary Refill, Normal Inspection, Normal Range of Motion, Non Tender Neurologic/Psychiatric: Oriented x3, No Motor/Sensory Deficits, Normal Mood/Affect, 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 II-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 Norm as Tested; No Abnormal Cerebellar Tests, No Abnormal Gait, No Facial Droop, No Motor Weakness, No Sensory Deficit; Other (Cerebellar function tested with heel/toe and gait, (neg romberg), sensory, and coordination (tested with rapid alternating movements) intact ) Skin: Normal Color, Warm/Dry Progress/Results/Core Measures Suspected Sepsis Recent Fever Within 48 Hours: No Infection Criteria Present: None New/Unexplained Altered Menta: No Sepsis Screen: No Definite Risk SIRS Temperature: Pulse: 70 Respiratory Rate: 18 Laboratory Tests 04/02/20 20:18: White Blood Count 7.7 Blood Pressure 135 /89 Mean: 104 Laboratory Tests 04/02/20 20:18: Creatinine 0.75, Platelet Count 326, Total Bilirubin 0.2 Results/Orders Lab Results Laboratory Tests Test 04/02/20 20:18 04/02/20 20:20 Range/Units White Blood Count 7.7 4.3-11.0 10^3/uL Red Blood Count 4.57 3.80-5.11 10^6/uL Hemoglobin 13.9 11.5-16.0 g/dL Hematocrit 42 35-52 % Mean Corpuscular Volume 91 80-99 fL Mean Corpuscular Hemoglobin 30 25-34 pg Mean Corpuscular Hemoglobin Concent 33 32-36 g/dL Red Cell Distribution Width 12.2 10.0-14.5 % Platelet Count 326 130-400 10^3/uL Mean Platelet Volume 9.0 9.0-12.2 fL Immature Granulocyte % (Auto) 0 % Neutrophils (%) (Auto) 60 42-75 % Lymphocytes (%) (Auto) 33 12-44 % Monocytes (%) (Auto) 6 0-12 % Eosinophils (%) (Auto) 1 0-10 % Basophils (%) (Auto) 1 0-10 % Neutrophils # (Auto) 4.6 1.8-7.8 10^3/uL Lymphocytes # (Auto) 2.5 1.0-4.0 10^3/uL Monocytes # (Auto) 0.4 0.0-1.0 10^3/uL Eosinophils # (Auto) 0.1 0.0-0.3 10^3/uL Basophils # (Auto) 0.0 0.0-0.1 10^3/uL Immature Granulocyte # (Auto) 0.0 0.0-0.1 10^3/uL Sodium Level 143 135-145 MMOL/L Potassium Level 3.5 L 3.6-5.0 MMOL/L Chloride Level 106 98-107 MMOL/L Carbon Dioxide Level 25 21-32 MMOL/L Anion Gap 12 5-14 MMOL/L Blood Urea Nitrogen 10 7-18 MG/DL Creatinine 0.75 0.60-1.30 MG/DL Estimat Glomerular Filtration Rate > 60 BUN/Creatinine Ratio 13 Glucose Level 119 H 70-105 MG/DL Calcium Level 8.6 8.5-10.1 MG/DL Corrected Calcium 8.4 L 8.5-10.1 MG/DL Magnesium Level 2.0 1.6-2.4 MG/DL Total Bilirubin 0.2 0.1-1.0 MG/DL Aspartate Amino Transf (AST/SGOT) 17 5-34 U/L Alanine Aminotransferase (ALT/SGPT) 20 0-55 U/L Alkaline Phosphatase 61 40-136 U/L Total Protein 7.3 6.4-8.2 GM/DL Albumin 4.2 3.2-4.5 GM/DL Serum Test, Qualitative NEGATIVE NEGATIVE Urine Color YELLOW Urine Clarity CLEAR Urine pH 7.5 5-9 Urine Specific [place] 1.020 1.016-1.022 Urine Protein NEGATIVE NEGATIVE Urine Glucose (UA) NEGATIVE NEGATIVE Urine Ketones NEGATIVE NEGATIVE Urine Nitrite NEGATIVE NEGATIVE Urine Bilirubin NEGATIVE NEGATIVE Urine Urobilinogen 0.2 < = 1.0 MG/DL Urine Leukocyte Esterase 1+ H NEGATIVE Urine RBC (Auto) NEGATIVE NEGATIVE Urine RBC 0-2 /HPF Urine WBC 0-2 /HPF Urine Crystals PRESENT H /LPF Urine Amorphous Sediment FEW CORTNEY PHOSPHATE H /LPF Urine Bacteria TRACE /HPF Urine Casts NONE /LPF Urine Mucus NEGATIVE /LPF Urine Culture Indicated NO My Orders Orders - MARI WOODARD APRN Ct Angio Head/Neck (04/02/20 20:38) Iohexol Injection (Omnipaque 350 Mg/Ml 1 (04/02/20 20:45) Received Contrast (Hold Metformin- Contr (04/02/20 20:45) Ns (Ivpb) (Sodium Chloride 0.9% Ivpb Bag (04/02/20 20:45) Amoxicillin/Clavulanate Tablet (Augmenti (04/02/20 22:45) Medications Given in ED Current Medications Medications Dose Ordered Sig/Jayesh Route Start Time Stop Time Status Last Admin Dose Admin Amoxicillin/ Clavulanate Potassium 875 mg ONCE ONCE PO 04/02/20 22:45 04/02/20 22:46 DC 04/02/20 22:44 875 MG Vital Signs/I&O 04/02/20 19:25 Temp 35.8 Pulse 70 Resp 18 B/P (MAP) 135/89 (104) Pulse Ox 100 Capillary Refill : Less Than 3 Seconds Blood Pressure Mean: 104 Progress Note : Progress Note Based on history, this appears to be a chronic issue with symptoms worse today. Examination shows tenderness over maxillary and frontal sinuses which could possibly indicate sinus infection. Will obtain basic labs, and CTA head and neck to assess for possible occlusion contributing to acute exacerbation of symptoms. Labs reviewed and are unremarkable. CTa head/neck shows normal vasculature in the head and neck without large vessel occlusion. Discussed findings with her and the symptoms were likely related to an acute infection that is worsening her chronic condition. Recommend following up with her PCP and possible referral to Dr. Hardne for persistent ear pain and vertigo. Reviewed discharge plan of care and she is agreeable with plan. Diagnostic Imaging Diagonstic Imaging: CT Plain Films/CT/US/NM/MRI: head (neck) Comments NAME: VALERIO CARDOSO [facility] REC#: [id number] PT STATUS: REG GISELL : 1985 PHYSICIAN: MARI WOODARD APRN ADMIT DATE: 04/02/20/ER Signed Date of Exam:04/02/20 CT ANGIO HEAD/NECK EXAMINATION: CT angiography head and neck with and without contrast. TECHNIQUE: After intravenous administration of contrast, thin section axial CT angiography of the head and neck was performed. Source data was reformatted into 3D MIP projections. All CT scans use one or more of the following dose optimizing techniques: automated exposure control, MA and/or KvP adjustment based on patient size and exam type or iterative reconstruction. HISTORY: MOSQUEDA, Vertigo, double vision COMPARISON: None available. FINDINGS: CTA head: Anterior circulation: The visualized portions of the internal carotid arteries are unremarkable without significant plaque or stenosis. The anterior and middle cerebral arteries show no stenosis or intraluminal filling defects. No anterior circulation aneurysms are present. The left anterior cerebral artery is diminutive. Posterior circulation: The visualized distal vertebral arteries are patent to the vertebrobasilar junction. The basilar artery and both posterior cerebral arteries are widely patent without stenosis. No posterior circulation aneurysms are present. The ventricles and sulci are normal. No abnormal attenuation of brain parenchyma is present. No acute intracranial hemorrhage or abnormal extra-axial fluid collections are present. No abnormal meningeal or parenchymal enhancement. The calvarium is intact. The mastoid air cells are clear. The visualized paranasal sinuses are clear. The orbits are normal. CTA neck: Arch: Conventional branching of the aortic arch. The visualized subclavian arteries are patent without stenosis. Right: The right common carotid, internal carotid, and external carotid arteries are widely patent without stenosis or dissection. No significant calcified plaque. The estimated internal carotid stenosis by NASCET criteria is 0%. The right vertebral artery is patent to the level of the vertebrobasilar junction. Left: The left common carotid, internal carotid, and external carotid arteries are widely patent without stenosis or dissection. No significant calcified plaque. The estimated internal carotid stenosis by NASCET criteria is 0%. The left vertebral artery is patent to the level of the vertebrobasilar junction. Other: The visualized thyroid gland is unremarkable. The cervical soft tissues are unremarkable. The visualized upper lungs and mediastinum are normal. The cervical osseous structures are normal. There are multiple prominent bilateral cervical lymph nodes with the largest left cervical lymph node measuring 1.8 x 1.0 cm (series 3 image 253). IMPRESSION: 1. Normal vasculature in the head and neck without large vessel occlusion. 2. Prominent cervical lymphadenopathy is nonspecific. Dictated by: Dictated on workstation # [id number] Dict: 04/02/202114 Trans: 04/02/202129 [facility] [id number] Interpreted by: YOVANI OWEN DO Electronically signed by: YOVANI OWEN DO 04/02/202129 Departure Impression Primary Impression: Sinusitis Additional Impression: Vertigo Disposition: 01 HOME, SELF-CARE Condition: Improved Departure-Patient Inst. Decision time for Depature: 22:41 Referrals: NLIE MEDEL MD (PCP/Family) Primary Care Physician Patient Instructions: Vertigo (a Type of Dizziness) (DC), Sinusitis in Adults Add. Discharge Instructions: Plan: 1. Your sinus infection appears to be causing you to have worsening symptoms. 2. Take Augmentin 875mg by mouth twice a day as directed for 7 days. Complete full course. 3. Drink plenty of fluids. 4. Follow up with your primary care provider for referral to local ear nose throat doctor, Dr. Harden for chronic ear pain and dizziness. 5. RETURN TO ER for any new, worsening, or concerning symptoms. All discharge instructions reviewed with patient and/or family. Voiced understanding. Scripts Amoxicillin/Potassium Clav (Augmentin 875-125 Tablet) 1 Each Tablet 1 EACH PO BID for 7 Days, #14 TAB 0 Refills Prov: MARI WOODARD PECAN CLEANER 04/02/20 MARI WOODARD APRN Apr 02, 2020 20:41
[2020-04-02 20:42] LABS: ALBUMIN 4.2 GM/DL (3.2-4.5); BASOPHILS % (AUTO) 1 % (0-10); EOSINOPHILS # (AUTO) 0.1 10^3/uL (0.0-0.3); EOSINOPHILS % (AUTO) 1 % (0-10); HEMATOCRIT 42 % (35-52); HEMOGLOBIN 13.9 g/dL (11.5-16.0); LYMPHOCYTES # (AUTO) 2.5 10^3/uL (1.0-4.0); LYMPHOCYTES % (AUTO) 33 % (12-44); MEAN CORPUSCULAR HEMOGLOBIN 30 pg (25-34); MEAN CORPUSCULAR HGB CONC 33 g/dL (32-36); MEAN CORPUSCULAR VOLUME 91 fL (80-99); MONOCYTES # (AUTO) 0.4 10^3/uL (0.0-1.0); MONOCYTES % (AUTO) 6 % (0-12); NEUTROPHILS # (AUTO) 4.6 10^3/uL (1.8-7.8); NEUTROPHILS % (AUTO) 60 % (42-75); PLATELET COUNT 326 10^3/uL (130-400); WHITE BLOOD COUNT 7.7 10^3/uL (4.3-11.0)
[2020-04-02 20:43] LABS: CHLORIDE 106 MMOL/L (98-107); POTASSIUM 3.5 MMOL/L (3.6-5.0); SODIUM 143 MMOL/L (135-145)
[2020-04-02 20:44] LABS: CALCIUM 8.6 MG/DL (8.5-10.1)
[2020-04-02 20:45] LABS: GLUCOSE 119 MG/DL (70-105); TOTAL PROTEIN 7.3 GM/DL (6.4-8.2)
[2020-04-02] MEDS ORDERED: NS 100 ML (IVPB) BAG IV ONE (20:45)
[2020-04-02] MEDS ORDERED: HOLD METFORMIN - RECEIVED CONTRAST 20 ML VIAL IV SCH (20:45)
[2020-04-02] MEDS ORDERED: IOHEXOL 350 MG/ML 100 ML (OMNIPAQUE 350) VIAL IV ONE (20:45)
[2020-04-02 20:46] LABS: CARBON DIOXIDE 25 MMOL/L (21-32)
[2020-04-02 20:47] LABS: BILIRUBIN,TOTAL 0.2 MG/DL (0.1-1.0)
[2020-04-02 20:49] LABS: ALKALINE PHOSPHATASE 61 U/L (40-136); CREATININE SERUM 0.75 MG/DL (0.60-1.30); GFR ESTIMATED > 60
[2020-04-02 20:50] LABS: BUN/CREATININE RATIO 13
[2020-04-02 20:52] LABS: ALANINE AMINOTRANSFERASE 20 U/L (0-55)
[2020-04-02 20:55] LABS: AMORPHOUS SEDIMENT,UR FEW AMOR PHOSPHATE /LPF; RBC,URINE 0-2 /HPF; WBC,URINE 0-2 /HPF
[2020-04-02 20:56] LABS: BACTERIA,URINE TRACE /HPF
--- NOTE | 2020-04-02 21:26 | Diagnostic Imaging Report ---
EXAMINATION: CT angiography head and neck with and without contrast. TECHNIQUE: After intravenous administration of contrast, thin section axial CT angiography of the head and neck was performed. Source data was reformatted into 3D MIP projections. All CT scans use one or more of the following dose optimizing techniques: automated exposure control, MA and/or KvP adjustment based on patient size and exam type or iterative reconstruction. HISTORY: MOSQUEDA, Vertigo, double vision COMPARISON: None available. FINDINGS: CTA head: Anterior circulation: The visualized portions of the internal carotid arteries are unremarkable without significant plaque or stenosis. The anterior and middle cerebral arteries show no stenosis or intraluminal filling defects. No anterior circulation aneurysms are present. The left anterior cerebral artery is diminutive. Posterior circulation: The visualized distal vertebral arteries are patent to the vertebrobasilar junction. The basilar artery and both posterior cerebral arteries are widely patent without stenosis. No posterior circulation aneurysms are present. The ventricles and sulci are normal. No abnormal attenuation of brain parenchyma is present. No acute intracranial hemorrhage or abnormal extra-axial fluid collections are present. No abnormal meningeal or parenchymal enhancement. The calvarium is intact. The mastoid air cells are clear. The visualized paranasal sinuses are clear. The orbits are normal. CTA neck: Arch: Conventional branching of the aortic arch. The visualized subclavian arteries are patent without stenosis. Right: The right common carotid, internal carotid, and external carotid arteries are widely patent without stenosis or dissection. No significant calcified plaque. The estimated internal carotid stenosis by NASCET criteria is 0%. The right vertebral artery is patent to the level of the vertebrobasilar junction. Left: The left common carotid, internal carotid, and external carotid arteries are widely patent without stenosis or dissection. No significant calcified plaque. The estimated internal carotid stenosis by NASCET criteria is 0%. The left vertebral artery is patent to the level of the vertebrobasilar junction. Other: The visualized thyroid gland is unremarkable. The cervical soft tissues are unremarkable. The visualized upper lungs and mediastinum are normal. The cervical osseous structures are normal. There are multiple prominent bilateral cervical lymph nodes with the largest left cervical lymph node measuring 1.8 x 1.0 cm (series 3 image 253). IMPRESSION: 1. Normal vasculature in the head and neck without large vessel occlusion. 2. Prominent cervical lymphadenopathy is nonspecific. Dictated by: Dictated on workstation # [id number]
[2020-04-02] MEDS ORDERED: AMOX-358 PO (22:42)
[2020-04-02] MEDS ORDERED: AUGMENTIN 875 MG TAB (AMOXICILLIN/CLAVULANATE) PO ONE (22:45)
[2020-04-02 22:48] VITALS: BP 130/82
== END 2020-04-02 22:49 | disposition home or self-care (01) ==
LOC: EDUNIT# 19:17 → ER 19:19
DX: J32.9 Chronic sinusitis, unspecified (principal); R42 Dizziness and giddiness; Z88.8 Allergy status to other drugs, medicaments and biological substances
CPT/HCPCS: 36415; 70496; 70498; 80053; 81000; 83735; 84703; 85025

== ENCOUNTER 2021-10-02 07:19 | Emergency (ER) | payer SELFPAY ==
[~2021-10-02] VITALS: Ht 170.2 cm; Wt 124.7 kg
[~2021-10-02 07:19] MED LIST changes: +AMOX-358 PO; +OMEP20TA56 PO; -OMEP20TA7 PO
--- NOTE | 2021-10-02 08:08 | ED General ---
General Chief Complaint: Back Problems Stated Complaint: BACK PAIN Nursing Triage Note: PT AMB TO [facility] 6 WITH COMPLAINT OF BACK PAIN FOR 2 WEEKS. SAW LOGAN AUGUSTIN THIS WEEK AND DIAGNOSED WITH KIDNEY INFECTION. (MALAIKA BIGGS) History of Present Illness Date Seen by Provider: October 02, 2021 Time Seen by Provider: 07:40 Initial Comments 36 year old female presents to the ED via private vehicle for low back pain. She reports the back pain began 2 weeks ago and describes it as a constant, intermittently stabbing pain. The pain is bilateral, but worse on the left and radiates around to her abdomen. Rates the pain as an 8/10 at its worse. She is comfortable currently. She reports the pain is better during the day and worse at night. It is also worse when she urinates. She has been taking tylenol for the pain and reports it hasn't helped. She reports being seen by her PCP, Logan Cooley, at [facility] at which point she was diagnosed with a bladder infection and started on nitrofurantoin. She reports still having dysuria and increased urinary frequency. She denies hematuria. She also denies pain/numbness into her legs, urinary or fecal incontinence, or saddle anesthesia at at this time. She has no recent history of trauma to her back or rigorous exercise. She has not noticed vaginal discharge and reports not having periods due to depo provera contraceptive use. Timing/Duration: 1 Week (MALAIKA BIGGS) Allergies and Home Medications Allergies Coded Allergies: topiramate (Verified Allergy, Unknown, 04/02/20) Patient Home Medication List Home Medication List Reviewed: Yes (MIMA JASON MD) Amoxicillin/Potassium Clav (Augmentin 875-125 Tablet) 1 Each Tablet, 1 EACH PO BID Prescribed by: MARI WOODARD on 04/02/20 2242 Hydrocodone Bit/Acetaminophen (Lortab 7.5 Mg Tablet) 1 Each Tablet, 1-2 EACH PO Q4H Prescribed by: ASHLEY GUSTAFSON on 11/25/16 1504 Methocarbamol (Methocarbamol) 750 Mg Tablet, 750 MG PO Q6-8HR Prescribed by: MIMA JASON on 10/02/21 1014 Naproxen (Naprosyn) 500 Mg Tablet, 500 MG PO BID Prescribed by: MIMA JASON on 10/02/21 1014 Review of Systems Review of Systems Constitutional: No chills, No fever EENTM: No hearing loss, No vision loss, No throat pain Respiratory: No cough, No short of breath Cardiovascular: No chest pain, No palpitations Gastrointestinal: abdominal pain (mild RLQ and LLQ pain associated with her back pain); No constipation, No diarrhea, No nausea, No vomiting Genitourinary: No discharge; dysuria, frequency (increased); No hematuria, No incontinence Musculoskeletal: back pain (bilateral, worse on the left); No muscle pain Skin: No lesions, No rash Psychiatric/Neurological: No Symptoms Reported Hematologic/Lymphatic: No Symptoms Reported Immunological/Allergic: no symptoms reported (MALAIKA BIGGS) Past Nqavpgy-Bhmrio-Ibuutp Hx Patient Social History Tobacco Use?: No Use of E-Cig and/or Vaping dev: No Substance use?: No Alcohol Use?: No Pt feels they are or have been: No (MALAIKA BIGGS) Immunizations Up To Date Tetanus Booster (TDap): Less than 5yrs (MALAIKA BIGGS) Seasonal Allergies Seasonal Allergies: No (MALAIKA BIGGS) Past Medical History Surgeries: Yes Section, Gallbladder Respiratory: No Cardiac: No Neurological: No Female Reproductive Disorders: Denies Sexually Transmitted Disease: No HIV/AIDS: No Genitourinary: Yes (August 2016) Kidney Infection Gastrointestinal: No Musculoskeletal: No Endocrine: No HEENT: No Loss of Vision: Denies Hearing Impairment: Denies Cancer: No Psychosocial: No Integumentary: No Blood Disorders: No Adverse Reaction/Blood Tranf: No (MALAIKA BIGGS) Family Medical History Patient reports no known family medical history. No Pertinent Family Hx (MALAIKA BIGGS) Physical Exam Vital Signs Vital Signs - First Documented 10/02/21 07:30 Temp 36.0 Pulse 82 Resp 18 B/P (MAP) 129/85 (100) Pulse Ox 98 O2 Delivery Room Air (MIMA JASON MD) Vital Signs Capillary Refill : Less Than 3 Seconds (MALAIKA BIGGS) Height, Weight, BMI Height: 5'6.00" Weight: 237lbs. 0.0oz. 107.812665bf; 43.00 BMI Method:Stated General Appearance: No Apparent Distress, Obese HEENT: PERRL/EOMI, Pharynx Normal Neck: Non Tender, Supple Respiratory: Lungs Clear, Normal Breath Sounds, No Respiratory Distress Cardiovascular: Regular Rate, Rhythm, No Murmur, Normal Peripheral Pulses Gastrointestinal: Normal Bowel Sounds, No Pulsatile Mass, Soft, Tenderness (mild tenderness in RLQ and LLQ) Back: No CVA Tenderness (L), No CVA Tenderness (R); Other (minimal tenderness midline lumbar region and with palpation of left lumbar paraspinal muscles.) Extremity: Normal Inspection, No Calf Tenderness, No Pedal Edema Neurologic/Psychiatric: Alert, Oriented x3 Skin: Normal Color, Warm/Dry; No Rash Lymphatic: No Adenopathy (MALAIKA BIGGS) Progress/Results/Core Measures Suspected Sepsis SIRS Temperature: Pulse: 82 Respiratory Rate: 18 Blood Pressure 129 /85 Mean: 100 Laboratory Tests 10/02/21 09:31: (MALAIKA BIGGS) Results/Orders Lab Results Laboratory Tests Test 10/02/21 08:02 10/02/21 09:31 Range/Units Urine Color YELLOW Urine Clarity CLEAR Urine pH 6.0 5-9 Urine Specific [place] 1.020 1.016-1.022 Urine Protein NEGATIVE NEGATIVE Urine Glucose (UA) NEGATIVE NEGATIVE Urine Ketones NEGATIVE NEGATIVE Urine Nitrite NEGATIVE NEGATIVE Urine Bilirubin NEGATIVE NEGATIVE Urine Urobilinogen 0.2 < = 1.0 MG/DL Urine Leukocyte Esterase 1+ H NEGATIVE Urine RBC (Auto) TRACE-I H NEGATIVE Urine RBC RARE /HPF Urine WBC 2-5 /HPF Urine Squamous Epithelial Cells 5-10 /HPF Urine Crystals NONE /LPF Urine Bacteria TRACE /HPF Urine Casts NONE /LPF Urine Mucus NEGATIVE /LPF Urine Culture Indicated YES Sodium Level 138 135-145 MMOL/L Potassium Level 4.0 3.6-5.0 MMOL/L Chloride Level 107 98-107 MMOL/L Carbon Dioxide Level 18 L 21-32 MMOL/L Anion Gap 13 5-14 MMOL/L Blood Urea Nitrogen 13 7-18 MG/DL Creatinine 0.68 0.60-1.30 MG/DL Estimat Glomerular Filtration Rate 116 BUN/Creatinine Ratio 19 Glucose Level 103 70-105 MG/DL Calcium Level 9.0 8.5-10.1 MG/DL (MIMA JASON MD) Micro Results Microbiology 10/02/21 Urine Culture - Final, Complete Mixed Bacterial Azucena (MIMA JASON MD) My Orders Orders - MIMA JASON MD Ua Culture If Indicated (10/02/21 07:49) Urine Bedside (10/02/21 07:49) Ibuprofen Tablet (Motrin Tablet) (10/02/21 08:15) Urine Culture (10/02/21 08:02) Ed Iv/Invasive Line Start (10/02/21 08:56) Basic Metabolic Panel (10/02/21 08:56) Abdomen/Kub 1view (10/02/21 08:56) Ct Abd/Pelvis Wo(Kidney Stone) (10/02/21 08:56) Tamsulosin Capsule (Flomax Capsule) (10/02/21 18:00) Morphine Injection (Morphine Injection (10/02/21 08:56) Glycopyrrolate Injection (Robinul Inject (10/02/21 09:00) Tamsulosin Capsule (Flomax Capsule) (10/02/21 09:18) (MIMA JASON MD) Medications Given in ED (MIMA JASON MD) Vital Signs/I&O 10/02/21 10/02/21 07:30 10:35 Temp 36.0 36.0 Pulse 82 82 Resp 18 18 B/P (MAP) 129/85 (100) 120/86 Pulse Ox 98 98 O2 Delivery Room Air Room Air (MIMA JASON MD) Vital Signs/I&O Capillary Refill : Less Than 3 Seconds (MALAIKA BIGGS) Blood Pressure Mean: 100 Progress Note : Time: 10:12 Progress Note Patient seen and examined, 36-year-old with low back pain/left flank pain and urinary tract infection. Concern for worsening infection and resistance of the nitrofurantoin to her infection. Patient has minimal evidence of ongoing infection, therefore I believe her antibiotics are probably working. I did do a renal function panel as well as KUB and CT stone protocol to rule out a kidney stone. These images were negative for stone. Her chemistry is unremarkable. She was given ibuprofen p.o. as well as morphine for pain. At the time of discharge she is feeling much better. We discussed the plan of care including naproxen and muscle relaxers and finishing out her antibiotics. She is comfo rtable with this. Return precautions were given. All questions were sought and answered. I have reviewed and agree with the medical students HPI and documentation. (MIMA JASON MD) Diagnostic Imaging Diagonstic Imaging: Xray, CT Plain Films/CT/US/NM/MRI: abdomen, pelvis Comments See preliminary abdominal/pelvic x ray and CT reports below: NAME: VALERIO CARDOSO [facility] REC#: [id number] PT STATUS: REG ER : 1985 PHYSICIAN: MIMA JASON MD ADMIT DATE: 10/02/21/ER Draft Date of Exam:10/02/21 ABDOMEN/KUB 1VIEW INDICATION: Left flank pain. FINDINGS: The lung bases are clear. Bowel gas pattern is nonspecific. There are surgical clips in right upper quadrant. There are no abnormal abdominal calcifications. IMPRESSION: Nonspecific bowel gas pattern with no abnormal abdominal calcifications. Dictated on workstation # [id number] Dict: 10/02/21 0913 Trans: 10/02/21 0921 [facility] [id number] Interpreted by: LUI NORTON MD Electronically signed by: [facility] [id number] PT STATUS: REG ER : 1985 PHYSICIAN: MIMA JASON MD ADMIT DATE: 10/02/21/ER Draft Date of Exam:10/02/21 CT ABD/PELVIS WO(KIDNEY STONE) PROCEDURE: CT urinary tract, rule out kidney stone. TECHNIQUE: Multiple contiguous axial images were obtained through the abdomen and pelvis without the use of intravenous contrast. Auto Exposure Controls were utilized during the CT exam to meet ALARA standards for radiation dose reduction. INDICATION: Left flank pain. Patient has history of kidney stones. No prior studies are available for comparison. Lung bases are clear. Liver is unremarkable. Gallbladder is surgically absent. No biliary duct dilatation is seen. The pancreas and spleen are unremarkable. No adrenal mass is detected. No renal calculi are detected. No ureteral or bladder calculi are detected. There is no evidence of hydronephrosis. Aorta is nonaneurysmal. Small and large bowel loops are of normal caliber. There is no obstruction. No free fluid is detected. There is no fluid collection. The uterus is unremarkable. No inflammatory changes are detected. IMPRESSION: No evidence of urinary tract calculi or obstruction. No acute feature in the abdomen or pelvis is identified. Dictated on workstation # [id number] Dict: 10/02/21912 Trans: 10/02/21922 [facility] [id number] Interpreted by: THEO CARDOZA MD Electronically signed by: (MALAIKA BIGGS) Departure Impression Primary Impression: Back pain Qualified Codes: M54.50 - Low back pain, unspecified Additional Impression: UTI (urinary tract infection) Qualified Codes: N30.01 - Acute cystitis with hematuria Disposition: HOME, SELF-CARE Condition: Improved Departure-Patient Inst. Decision time for Depature: 10:11 (MIMA JASON MD) Referrals: NILE MEDEL MD (PCP/Family) Primary Care Physician Patient Instructions: Low Back Pain (DC) Add. Discharge Instructions: Take the pain medication, naproxen twice daily with food as needed for pain. You can also alternate heat and ice to the sore areas of your back throughout the day. I have also prescribed a muscle relaxer that you can take as directed/needed. This medication may make you sleepy do not drive and take this medication. Finish out your antibiotics for the bladder infection. Come back to the emergency room for worsening pain especially with fever over 101, vomiting or any other emergent, concerning symptoms. Please follow-up with your primary care provider. Deltana el medicamento para el dolor, naproxeno dos veces al da con alimentos se gn sea necesario para el dolor. Logan puede alternar el calor y el hielo a las reas doloridas de la espalda jovana todo el da. Logan le he recetado un relajante muscular que puede vanesa segn las indicaciones / necesidades. Marj medicamento puede causarle sueo, no conduzca y tome marj medicamento. Termine guillaume antibiticos para la infeccin de la vejiga. Regrese a la bob de emergencias para empeorar el dolor, especialmente con fiebre superior a 101, vmitos o cualquier otro sntoma emergente. Por favor, keven un seguimiento con segura proveedor de atencin primaria. Scripts Naproxen (Naprosyn) 500 Mg Tablet 500 MG PO BID, #20 TAB 0 Refills take with food Prov: MIMA JASON MD 10/02/21 Methocarbamol (Methocarbamol) 750 Mg Tablet 750 MG PO Q6-8HR for Back Pain, #20 TAB Prov: MIMA JASON MD 10/02/21 Verification and Attestation of Medical Student E/M Service A medical student performed and documented this service in my presence. I reviewed and verified all information documented by the medical student and made modifications to such information, when appropriate. I personally performed the physical exam and medical decision making. Mima Jason, October 02, 2021,10:17 (MIMA JASON MD) Copy Copies To 1: NILE MEDEL MD, CARSON October 02, 2021 08:08 MIMA JASON MD October 02, 2021 10:16
[2021-10-02 08:11] LABS: BILIRUBIN,URINE NEGATIVE (NEGATIVE); CLARITY,URINE CLEAR; COLOR,URINE YELLOW; GLUCOSE, URINE (UA) NEGATIVE (NEGATIVE); KETONES,URINE NEGATIVE (NEGATIVE); LEUKOCYTE ESTERASE ,URINE 1+ (NEGATIVE); NITRITE,URINE NEGATIVE (NEGATIVE); PROTEIN,URINE NEGATIVE (NEGATIVE)
[2021-10-02] MEDS ORDERED: IBUPROFEN 600 MG (MOTRIN) TAB PO ONE (08:15)
[2021-10-02 08:38] LABS: RBC,URINE RARE /HPF
[2021-10-02 08:39] LABS: BACTERIA,URINE TRACE /HPF
[2021-10-02] MEDS ORDERED: morphine INJ 10 MG/ML 1ML (SYR OR VIAL) IVP STA (08:56)
[2021-10-02] MEDS ORDERED: GLYCOPYRROLATE 0.2 MG/ML (ROBINUL) 2 ML VIAL IV ONE (09:00)
[2021-10-02] MEDS ORDERED: TAMSULOSIN 0.4 MG (FLOMAX) CAP PO ONE (09:18)
--- NOTE | 2021-10-02 09:22 | Diagnostic Imaging Report ---
INDICATION: Left flank pain. FINDINGS: The lung bases are clear. Bowel gas pattern is nonspecific. There are surgical clips in right upper quadrant. There are no abnormal abdominal calcifications. IMPRESSION: Nonspecific bowel gas pattern with no abnormal abdominal calcifications. Dictated by: Dictated on workstation # [id number]
--- NOTE | 2021-10-02 09:23 | Diagnostic Imaging Report ---
PROCEDURE: CT urinary tract, rule out kidney stone. TECHNIQUE: Multiple contiguous axial images were obtained through the abdomen and pelvis without the use of intravenous contrast. Auto Exposure Controls were utilized during the CT exam to meet ALARA standards for radiation dose reduction. INDICATION: Left flank pain. Patient has history of kidney stones. No prior studies are available for comparison. Lung bases are clear. Liver is unremarkable. Gallbladder is surgically absent. No biliary duct dilatation is seen. The pancreas and spleen are unremarkable. No adrenal mass is detected. No renal calculi are detected. No ureteral or bladder calculi are detected. There is no evidence of hydronephrosis. Aorta is nonaneurysmal. Small and large bowel loops are of normal caliber. There is no obstruction. No free fluid is detected. There is no fluid collection. The uterus is unremarkable. No inflammatory changes are detected. IMPRESSION: No evidence of urinary tract calculi or obstruction. No acute feature in the abdomen or pelvis is identified. Dictated by: Dictated on workstation # [id number]
[2021-10-02 09:57] LABS: CREATININE SERUM 0.68 MG/DL (0.60-1.30)
[2021-10-02] MEDS ORDERED: NAPR-1071 PO (10:14)
[2021-10-02] MEDS ORDERED: METH-732 PO (10:14)
[2021-10-02 10:35] VITALS: BP 120/86
[2021-10-02] MEDS ORDERED: TAMSULOSIN 0.4 MG (FLOMAX) CAP PO SCH (18:00)
== END 2021-10-02 10:35 | disposition home or self-care (01) ==
LOC: EDUNIT# 07:19 → ER 07:21
DX: N30.01 Acute cystitis with hematuria (principal); Z87.440 Personal history of urinary (tract) infections
CPT/HCPCS: 36415; 74018; 74176; 80048; 81000; 84703; 87088

== ENCOUNTER 2022-01-21 19:45 | Emergency (ER) | payer SELFPAY ==
[~2022-01-21] VITALS: Ht 170.2 cm; Wt 123.8 kg
[~2022-01-21 19:45] MED LIST changes: +METH-732 PO; +NAPR-1071 PO
[2022-01-21] MEDS ORDERED: ASPIRIN 81 MG CHEW (CHILDREN'S ASA) PO ONE (20:00)
[2022-01-21 20:08] LABS: BASOPHILS % (AUTO) 0 % (0-10); EOSINOPHILS # (AUTO) 0.1 10^3/uL (0.0-0.3); EOSINOPHILS % (AUTO) 1 % (0-10); HEMATOCRIT 39 % (35-52); LYMPHOCYTES # (AUTO) 2.1 10^3/uL (1.0-4.0); LYMPHOCYTES % (AUTO) 22 % (12-44); MEAN CORPUSCULAR HEMOGLOBIN 30 pg (25-34); MEAN CORPUSCULAR HGB CONC 34 g/dL (32-36); MEAN CORPUSCULAR VOLUME 90 fL (80-99); MEAN PLATELET VOLUME 8.8 fL (9.0-12.2); MONOCYTES # (AUTO) 0.6 10^3/uL (0.0-1.0); MONOCYTES % (AUTO) 6 % (0-12); NEUTROPHILS # (AUTO) 6.6 10^3/uL (1.8-7.8); NEUTROPHILS % (AUTO) 70 % (42-75); PLATELET COUNT 300 10^3/uL (130-400); WHITE BLOOD COUNT 9.5 10^3/uL (4.3-11.0)
--- NOTE | 2022-01-21 20:31 | Diagnostic Imaging Report ---
INDICATION: Chest pain. EXAMINATION: Chest, 01/21/2022. FINDINGS: There are low lung volumes with minimal bibasilar atelectasis. No infiltrate, effusion or pneumothorax. Heart is prominent. Pulmonary vasculature mildly prominent. IMPRESSION: Bibasilar atelectasis with mild pulmonary vascular congestion. Some of this may be due to the low lung volumes. Dictated by: Dictated on workstation # [id number]
--- NOTE | 2022-01-21 20:33 | ED General ---
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 AT [facility] PT STATES THAT SHE HAS HAD A HEADACHE TODAY SHE HAS FELT SHAKEY, AND SWEATY HAS "CHEST PAIN" --UPPER CHEST AROUND HER CLAVICLE AREAS + DIZZINESS NO SHORTNESS OF BREATH NO HISTORY OF SIMILAR NO FEVER OR RECENT ILLNESS NO PARESTHESIAS OR MOTOR DEFICITS NO VISION CHANGES NO GI SYMPTOMS NO NECK PAIN OR STIFFNESS NO RECENT TICK OR MOSQUITO BITES LMP--UNKNOWN, PT IS ON DEPO-PROVERA, LAST SHOT IN NOVEMBER NO MEDICAL PROBLEMS AND DOES NOT TAKE ANY MEDICATION FOR ANYTHING. PT HAS HAD COVID-19 VACCINE X 2 PCP: [facility] Allergies and Home Medications Allergies Coded Allergies: topiramate (Verified Allergy, Unknown, 04/02/20) Patient Home Medication List Home Medication List Reviewed: Yes Amoxicillin/Potassium Clav (Augmentin 875-125 Tablet) 1 Each Tablet, 1 EACH PO BID Prescribed by: MARI WOODARD on 04/02/20 2242 Hydrocodone Bit/Acetaminophen (Lortab 7.5 Mg Tablet) 1 Each Tablet, 1-2 EACH PO Q4H Prescribed by: ASHLEY GUSTAFSON on 11/25/16 1504 Methocarbamol (Methocarbamol) 750 Mg Tablet, 750 MG PO Q6-8HR Prescribed by: MARGO JASON on 10/02/21 1014 Naproxen (Naprosyn) 500 Mg Tablet, 500 MG PO BID Prescribed by: MARGO JASON on 10/02/21 1014 Review of Systems Review of Systems Constitutional: see HPI, dizziness; No fever EENTM: no symptoms reported Respiratory: no symptoms reported Cardiovascular: see HPI Gastrointestinal: no symptoms reported Genitourinary: no symptoms reported Musculoskeletal: no symptoms reported Skin: no symptoms reported Psychiatric/Neurological: See HPI Hematologic/Lymphatic: No Symptoms Reported Immunological/Allergic: no symptoms reported Past Sozdxgs-Axlfjb-Lihdrr Hx Patient Social History Tobacco Use?: No Smoking Status: Never a Smoker Smokeless Tobacco Frequency: Never a User Use of E-Cig and/or Vaping dev: No Use of E-Cig and/or Vaping Yayo: Never a User Substance use?: No Alcohol Use?: No Immunizations Up To Date Tetanus Booster (TDap): Less than 5yrs Seasonal Allergies Seasonal Allergies: No Past Medical History Surgeries: Yes Section, Gallbladder Respiratory: No Cardiac: No Neurological: No Reproductive Disorders: No Female Reproductive Disorders: Denies Sexually Transmitted Disease: No HIV/AIDS: No Genitourinary: Yes (August 2016) Kidney Infection Gastrointestinal: No Musculoskeletal: No Endocrine: No HEENT: No Loss of Vision: Denies Hearing Impairment: Denies Cancer: No Psychosocial: No Integumentary: No Blood Disorders: No Adverse Reaction/Blood Tranf: No Family Medical History Patient reports no known family medical history. No Pertinent Family Hx Physical Exam Vital Signs Vital Signs - First Documented 01/21/22 19:50 Temp 37.2 Pulse 79 Resp 22 B/P (MAP) 136/97 (110) Pulse Ox 98 O2 Delivery Room Air Capillary Refill : Height, Weight, BMI Height: 5'6.00" Weight: 237lbs. 0.0oz. 107.781095kb; 43.00 BMI Method:Stated General Appearance: No Apparent Distress, WD/WN, Other (DOES NOT APPEAR ILL OR TO BE IN ANY DISCOMFORT OR DISTRESS) HEENT: PERRL/EOMI Neck: Full Range of Motion, Normal Inspection, Non Tender, Supple; No Carotid Bruit, No JVD Respiratory: Chest Non Tender, Normal Breath Sounds, No Accessory Muscle Use, No Respiratory Distress Cardiovascular: Regular Rate, Rhythm, No Edema, No Gallop, No JVD, No Murmur, Normal Peripheral Pulses Gastrointestinal: Normal Bowel Sounds, No Organomegaly, No Pulsatile Mass, Non Tender, Soft Back: Normal Inspection Extremity: Normal Capillary Refill, Normal Inspection, Normal Range of Motion, Non Tender, No Calf Tenderness, No Pedal Edema Neurologic/Psychiatric: Alert, Oriented x3, No Motor/Sensory Deficits, Normal 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, 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 Norm as Tested; No Abnormal Cerebellar Tests Skin: Normal Color (PT IS ), Warm/Dry; No Rash Progress/Results/Core Measures Suspected Sepsis SIRS Temperature: Pulse: Respiratory Rate: Laboratory Tests 01/21/22 19:54: White Blood Count 9.5 Blood Pressure / Mean: Laboratory Tests 01/21/22 19:54: Creatinine 0.77, Platelet Count 300, Total Bilirubin 0.3 Results/Orders Lab Results Laboratory Tests Test 01/21/22 19:54 01/21/22 20:44 Range/Units White Blood Count 9.5 4.3-11.0 10^3/uL Red Blood Count 4.30 3.80-5.11 10^6/uL Hemoglobin 13.0 11.5-16.0 g/dL Hematocrit 39 35-52 % Mean Corpuscular Volume 90 80-99 fL Mean Corpuscular Hemoglobin 30 25-34 pg Mean Corpuscular Hemoglobin Concent 34 32-36 g/dL Red Cell Distribution Width 12.6 10.0-14.5 % Platelet Count 300 130-400 10^3/uL Mean Platelet Volume 8.8 L 9.0-12.2 fL Immature Granulocyte % (Auto) 0 % Neutrophils (%) (Auto) 70 42-75 % Lymphocytes (%) (Auto) 22 12-44 % Monocytes (%) (Auto) 6 0-12 % Eosinophils (%) (Auto) 1 0-10 % Basophils (%) (Auto) 0 0-10 % Neutrophils # (Auto) 6.6 1.8-7.8 10^3/uL Lymphocytes # (Auto) 2.1 1.0-4.0 10^3/uL Monocytes # (Auto) 0.6 0.0-1.0 10^3/uL Eosinophils # (Auto) 0.1 0.0-0.3 10^3/uL Basophils # (Auto) 0.0 0.0-0.1 10^3/uL Immature Granulocyte # (Auto) 0.0 0.0-0.1 10^3/uL Sodium Level 141 135-145 MMOL/L Potassium Level 3.7 3.6-5.0 MMOL/L Chloride Level 108 H 98-107 MMOL/L Carbon Dioxide Level 21 21-32 MMOL/L Anion Gap 12 5-14 MMOL/L Blood Urea Nitrogen 11 7-18 MG/DL Creatinine 0.77 0.60-1.30 MG/DL Estimat Glomerular Filtration Rate 102 BUN/Creatinine Ratio 14 Glucose Level 97 70-105 MG/DL Calcium Level 9.0 8.5-10.1 MG/DL Corrected Calcium 8.9 8.5-10.1 MG/DL Magnesium Level 1.9 1.6-2.4 MG/DL Total Bilirubin 0.3 0.1-1.0 MG/DL Aspartate Amino Transf (AST/SGOT) 17 5-34 U/L Alanine Aminotransferase (ALT/SGPT) 23 0-55 U/L Alkaline Phosphatase 73 40-136 U/L Total Creatine Kinase 101 29-168 U/L Creatine Kinase MB 0.5 <6.6 NG/ML Myoglobin 15.1 10.0-92.0 NG/ML Troponin I < 0.028 <0.028 NG/ML B-Type Natriuretic Peptide 11.3 <100.0 PG/ML Total Protein 7.2 6.4-8.2 GM/DL Albumin 4.1 3.2-4.5 GM/DL Amylase Level 39 25-125 U/L Lipase 21 8-78 U/L Serum Test, Qualitative NEGATIVE NEGATIVE Serum Alcohol < 10 <10 MG/DL Influenza Type A (RT-PCR) Not Detected Not Detecte Influenza Type B (RT-PCR) Not Detected Not Detecte SARS-CoV-2 RNA (RT-PCR) Not Detected Not Detecte Urine Opiates Screen NEGATIVE NEGATIVE Urine Oxycodone Screen NEGATIVE NEGATIVE Urine Methadone Screen NEGATIVE NEGATIVE Urine Propoxyphene Screen NEGATIVE NEGATIVE Urine Barbiturates Screen NEGATIVE NEGATIVE Ur Tricyclic Antidepressants Screen NEGATIVE NEGATIVE Urine Phencyclidine Screen NEGATIVE NEGATIVE Urine Amphetamines Screen NEGATIVE NEGATIVE Urine Methamphetamines Screen NEGATIVE NEGATIVE Urine Benzodiazepines Screen NEGATIVE NEGATIVE Urine Cocaine Screen NEGATIVE NEGATIVE Urine Cannabinoids Screen NEGATIVE NEGATIVE My Orders Orders - ELISA GARCIA K DO Alcohol (01/21/22 19:51) Drug Screen Stat (Urine) (01/21/22 19:51) Hcg,Qualitative Serum (01/21/22 19:51) Cbc With Automated Diff (01/21/22 19:51) Magnesium (01/21/22 19:51) Chest 1 View, Ap/Pa Only (01/21/22 19:51) Ekg Tracing (01/21/22 19:51) Comprehensive Metabolic Panel (01/21/22 19:51) Myoglobin Serum (01/21/22 19:51) O2 (01/21/22 19:51) Monitor-Rhythm Ecg Trace Only (01/21/22 19:51) Ed Iv/Invasive Line Start (01/21/22 19:51) Creatine Kinase (01/21/22 19:51) Creatine Kinase Mb (01/21/22 19:51) Lipase (01/21/22 19:51) Amylase (01/21/22 19:51) Bnp George (01/21/22 19:51) Troponin I George (01/21/22 19:51) Aspirin Chewable Tablet (Baby Aspirin Ch (01/21/22 20:00) Covid 19 Inhouse Test (01/21/22 19:51) Influenza A And B By Pcr (01/21/22 19:51) Isolation Central Supply Req (01/21/22 19:51) Ct Head Wo (01/21/22 21:03) Ketorolac Injection (Toradol Injection) (01/21/22 22:15) Medications Given in ED Current Medications Medications Dose Ordered Sig/Jayesh Route Start Time Stop Time Status Last Admin Dose Admin Aspirin 324 mg ONCE ONCE PO 01/21/22 20:00 01/21/22 20:01 DC 01/21/22 20:04 324 MG Ketorolac Tromethamine 30 mg ONCE ONCE IVP 01/21/22 22:15 01/21/22 22:17 DC 01/21/22 22:27 30 MG Vital Signs/I&O 01/21/22 01/21/22 19:50 22:36 Temp 37.2 Pulse 79 67 Resp 22 18 B/P (MAP) 136/97 (110) 127/96 Pulse Ox 98 96 O2 Delivery Room Air Room Air Capillary Refill : Progress Note : Progress Note UNEVENTFUL ER STAY BP DOWN TO 120'S/80'S WITHOUT TREATMENT GIVEN TORADOL FOR HEADACHE WITH IMPROVEMENT ECG Initial ECG Impression Date: Jan 21, 2022 Initial ECG Impression Time: 20:01 Initial ECG Rate: 70 Initial ECG Rhythm: Normal Sinus Initial ECG Impression: Nonspecific Changes Initial ECG Comparisson: No Previous ECG Available Diagnostic Imaging Comments CXR--PER RADIOLOGIST REPORT AT 2032 FINDINGS: There are low lung volumes with minimal bibasilar atelectasis. No infiltrate, effusion or pneumothorax. Heart is prominent. Pulmonary vasculature mildly prominent. IMPRESSION: Bibasilar atelectasis with mild pulmonary vascular congestion. Some of this may be due to the low lung volumes. CT HEAD--PER RADIOLOGIST REPORT AT 2206 FINDINGS: There is no hemorrhage or infarct. No mass, mass effect or midline shift. No hydrocephalus. Paranasal sinuses and mastoid air cells clear with calcification in the right ethmoid air cells possibly an osteoma. IMPRESSION: Chronic findings. No acute intracranial process. Reviewed: Reviewed by Me Departure Impression Primary Impression: Headache Additional Impression: Labile hypertension Disposition: 01 HOME, SELF-CARE Condition: Stable Departure-Patient Inst. Decision time for Depature: 22:07 Referrals: NILE MEDEL MD (PCP/Family) Primary Care Physician Patient Instructions: Headache, Adult (DC), High Blood Pressure ED Add. Discharge Instructions: HOME, REST LOTS OF CLEAR LIQUIDS FOLLOW UP WITH [facility] NEXT WEEK All discharge instructions reviewed with patient and/or family. Voiced understanding. ELISA GARCIA DO Jan 21, 2022 20:33
[2022-01-21 20:34] LABS: ALBUMIN 4.1 GM/DL (3.2-4.5); BILIRUBIN,TOTAL 0.3 MG/DL (0.1-1.0); CREATININE SERUM 0.77 MG/DL (0.60-1.30); MAGNESIUM 1.9 MG/DL (1.6-2.4); POTASSIUM 3.7 MMOL/L (3.6-5.0); TOTAL PROTEIN 7.2 GM/DL (6.4-8.2)
[2022-01-21 20:41] LABS: CREATINE KINASE MB 0.5 NG/ML (<6.6)
[2022-01-21 21:07] LABS: AMPHETAMINE SCREEN, URINE NEGATIVE (NEGATIVE); BARBITURATE SCREEN URINE NEGATIVE (NEGATIVE); BENZODIAZEPINES SCREEN URINE NEGATIVE (NEGATIVE); CANNABINOID SCREEN, URINE NEGATIVE (NEGATIVE); COCAINE SCREEN URINE NEGATIVE (NEGATIVE); METHADONE STAT NEGATIVE (NEGATIVE); OPIATE SCREEN URINE NEGATIVE (NEGATIVE); OXYCODONE STAT NEGATIVE (NEGATIVE); PROPOXYPHENE STAT NEGATIVE (NEGATIVE); TRICYCLIC ANTIDEPRESSANTS SCRE NEGATIVE (NEGATIVE)
--- NOTE | 2022-01-21 22:01 | Diagnostic Imaging Report ---
INDICATION: Headache. EXAMINATION: CT brain, 01/21/2022. All CT scans use one or more of the following dose optimizing techniques: automated exposure control, MA and/or KvP adjustment based on patient size and exam type or iterative reconstruction. COMPARISON: 04/02/2020. FINDINGS: There is no hemorrhage or infarct. No mass, mass effect or midline shift. No hydrocephalus. Paranasal sinuses and mastoid air cells clear with calcification in the right ethmoid air cells possibly an osteoma. IMPRESSION: Chronic findings. No acute intracranial process. Dictated by: Dictated on workstation # [id number]
[2022-01-21] MEDS ORDERED: KETOROLAC 30 MG/ML VIAL IVP ONE (22:15)
[2022-01-21 22:36] VITALS: BP 127/96
== END 2022-01-21 22:36 | disposition home or self-care (01) ==
LOC: EDUNIT# 19:45 → ER 19:47
DX: I10 Essential (primary) hypertension (principal); Z20.822 Contact with and (suspected) exposure to COVID-19
CPT/HCPCS: 70450; 71045; 80053; 80306; 82150; 82550; 82553; 83690; 83735; 83874; 83880; 84484; 84703 ×2; 85025; 87636; 93005; 93041; 99284; G0480; 36415; 80320

== ENCOUNTER 2022-08-07 08:28 | Emergency (ER) | payer SELFPAY ==
[~2022-08-07] VITALS: Ht 170 cm; Wt 123.0 kg
[2022-08-07] MEDS ORDERED: ONDANSETRON 4 MG/2 ML (SDV) Z0FRAN IVP ONE (09:45)
[2022-08-07] MEDS ORDERED: KETOROLAC 30 MG/ML VIAL IVP ONE (09:45)
[2022-08-07] MEDS ORDERED: LACTATED RINGERS 1,000 ML IV ONE (09:45)
[2022-08-07] MEDS ORDERED: MECLIZINE 25 MG (ANTIVERT) TAB PO ONE (09:45)
--- NOTE | 2022-08-07 09:56 | ED General ---
General Chief Complaint: Dizziness/Syncope Stated Complaint: DIZZINESS | HEADACHE Nursing Triage Note: PT AMB TO RM 6 PT CO OF DIZZINESS, MOSQUEDA 8/10, NAUSEA NOT VOMITING. PT STATES HAS TAKEN IBUPROFEN FOR MOSQUEDA. PT WAS SEEN YESTERDAY AT [facility]. NO TX TEST - FOR FLU. 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 She describes the dizziness as a spinning sensation or vertigo. It is worse with movement. It is perhaps worse with turning her head to the left. She denies any fever, cough, diarrhea, or other acute symptoms of infection. She does have nausea associated with the dizziness. Dizziness does fatigue with rest and stationary position. She took ibuprofen last night but it did not resolve her pain.Video language line was used to help with the interview and exam. Allergies and Home Medications Allergies Coded Allergies: topiramate (Verified Allergy, Unknown, 04/02/20) Patient Home Medication List Home Medication List Reviewed: Yes Amoxicillin/Potassium Clav (Augmentin 875-125 Tablet) 1 Each Tablet, 1 EACH PO BID Prescribed by: MARI WOODARD on 04/02/20 2242 Hydrocodone Bit/Acetaminophen (Lortab 7.5 Mg Tablet) 1 Each Tablet, 1-2 EACH PO Q4H Prescribed by: ASHLEY GUSTAFSON on 11/25/16 1504 Meclizine HCl (Meclizine HCl) 25 Mg Tablet, 25 MG PO Q6H PRN for DIZZINESS Prescribed by: WILIAM MARIN on 08/07/22 1303 Methocarbamol (Methocarbamol) 750 Mg Tablet, 750 MG PO Q6-8HR Prescribed by: MARGO JASON on 10/02/21 1014 Naproxen (Naprosyn) 500 Mg Tablet, 500 MG PO BID Prescribed by: MARGO JASON on 10/02/21 1014 Ondansetron (Ondansetron Odt) 4 Mg Tab.rapdis, 4 MG SL Q4H PRN for NAUSEA/VOMITING Prescribed by: WILIAM MARIN on 08/07/22 1303 Review of Systems Review of Systems Constitutional: no symptoms reported EENTM: see HPI Respiratory: no symptoms reported Cardiovascular: no symptoms reported Gastrointestinal: see HPI Genitourinary: no symptoms reported : No Musculoskeletal: no symptoms reported Skin: no symptoms reported Psychiatric/Neurological: No Symptoms Reported Hematologic/Lymphatic: No Symptoms Reported Immunological/Allergic: no symptoms reported Past Slhhdrp-Wknxfa-Vwqgjb Hx Patient Social History Tobacco Use?: No Substance use?: No Alcohol Use?: No Pt feels they are or have been: No Immunizations Up To Date Tetanus Booster (TDap): Less than 5yrs Influenza Vaccine Up-to-Date: Yes; Up-to-Date First/Initial COVID19 Vaccinat: 2020 Second COVID19 Vaccination El: 2020 Third COVID19 Vaccination Date: 2020 Seasonal Allergies Seasonal Allergies: No Past Medical History Surgeries: Yes Section, Gallbladder Respiratory: No Cardiac: No Neurological: No Reproductive Disorders: No Female Reproductive Disorders: Denies Sexually Transmitted Disease: No HIV/AIDS: No Genitourinary: Yes (August 2016) Kidney Infection Gastrointestinal: No Musculoskeletal: No Endocrine: No HEENT: No Loss of Vision: Denies Hearing Impairment: Denies Cancer: No Psychosocial: No Integumentary: No Blood Disorders: No Adverse Reaction/Blood Tranf: No Family Medical History Patient reports no known family medical history. No Pertinent Family Hx Physical Exam Vital Signs Vital Signs - First Documented 08/07/22 08:42 Temp 37.0 Pulse 65 Resp 18 B/P (MAP) 132/87 (102) Pulse Ox 97 Capillary Refill : Less Than 3 Seconds Height, Weight, BMI Height: 5'6.00" Weight: 237lbs. 0.0oz. 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 Normal gait. Normal finger to nose and heel to de jesus.) Skin: Normal Color, Warm/Dry Progress/Results/Core Measures Suspected Sepsis SIRS Temperature: Pulse: 65 Respiratory Rate: 18 Laboratory Tests 08/07/22 10:00: White Blood Count 8.0 Blood Pressure 132 /87 Mean: 102 Laboratory Tests 08/07/22 10:00: Creatinine 0.71, Platelet Count 276, Total Bilirubin 0.5 Results/Orders Lab Results Laboratory Tests Test 08/07/22 10:00 08/07/22 10:05 Range/Units White Blood Count 8.0 4.3-11.0 10^3/uL Red Blood Count 4.37 3.80-5.11 10^6/uL Hemoglobin 13.4 11.5-16.0 g/dL Hematocrit 39 35-52 % Mean Corpuscular Volume 90 80-99 fL Mean Corpuscular Hemoglobin 31 25-34 pg Mean Corpuscular Hemoglobin Concent 34 32-36 g/dL Red Cell Distribution Width 12.2 10.0-14.5 % Platelet Count 276 130-400 10^3/uL Mean Platelet Volume 8.7 L 9.0-12.2 fL Immature Granulocyte % (Auto) 1 % Neutrophils (%) (Auto) 76 H 42-75 % Lymphocytes (%) (Auto) 17 12-44 % Monocytes (%) (Auto) 5 0-12 % Eosinophils (%) (Auto) 1 0-10 % Basophils (%) (Auto) 0 0-10 % Neutrophils # (Auto) 6.1 1.8-7.8 10^3/uL Lymphocytes # (Auto) 1.3 1.0-4.0 10^3/uL Monocytes # (Auto) 0.4 0.0-1.0 10^3/uL Eosinophils # (Auto) 0.1 0.0-0.3 10^3/uL Basophils # (Auto) 0.0 0.0-0.1 10^3/uL Immature Granulocyte # (Auto) 0.0 0.0-0.1 10^3/uL Sodium Level 138 135-145 MMOL/L Potassium Level 4.1 3.6-5.0 MMOL/L Chloride Level 109 H 98-107 MMOL/L Carbon Dioxide Level 20 L 21-32 MMOL/L Anion Gap 9 5-14 MMOL/L Blood Urea Nitrogen 11 7-18 MG/DL Creatinine 0.71 0.60-1.30 MG/DL Estimat Glomerular Filtration Rate 113 BUN/Creatinine Ratio 15 Glucose Level 102 70-105 MG/DL Calcium Level 8.9 8.5-10.1 MG/DL Corrected Calcium 8.9 8.5-10.1 MG/DL Magnesium Level 2.1 1.6-2.4 MG/DL Total Bilirubin 0.5 0.1-1.0 MG/DL Aspartate Amino Transf (AST/SGOT) 17 5-34 U/L Alanine Aminotransferase (ALT/SGPT) 20 0-55 U/L Alkaline Phosphatase 66 40-136 U/L Total Protein 6.9 6.4-8.2 GM/DL Albumin 4.0 3.2-4.5 GM/DL Serum Test, Qualitative NEGATIVE NEGATIVE Influenza Type A (RT-PCR) Not Detected Not Detecte Influenza Type B (RT-PCR) Not Detected Not Detecte SARS-CoV-2 RNA (RT-PCR) Not Detected Not Detecte My Orders Orders - WILIAM VIDAL MD Cbc With Automated Diff (08/07/22 09:40) Comprehensive Metabolic Panel (08/07/22 09:40) Hcg,Qualitative Serum (08/07/22 09:40) Magnesium (08/07/22 09:40) Covid 19 Inhouse Test (08/07/22 09:40) Influenza A And B By Pcr (08/07/22 09:40) Lactated Ringers (Lr 1000 Ml Iv Solution (08/07/22 09:45) Meclizine Tablet (Antivert Tablet) (08/07/22 09:45) Ketorolac Injection (Toradol Injection) (08/07/22 09:45) Ondansetron Injection (Zofran Injectio (08/07/22 09:45) Medications Given in ED Vital Signs/I&O 08/07/22 08/07/22 08:42 13:15 Temp 37.0 Pulse 65 65 Resp 18 18 B/P (MAP) 132/87 (102) 105/73 Pulse Ox 97 97 Capillary Refill : Less Than 3 Seconds Blood Pressure Mean: 102 Progress Note : Progress Note Labs are obtained including CBC, CMP, viral swabs, Magnesium, and serum test. All were unremarkable and reviewed in their entirety by me. Patient was treated with Toradol for headache, Zofran for nausea, and meclizine for dizziness. She was also administered a 1 L bolus of LR. These i nterventions improved her headache and nausea but did not resolve the dizziness. Jayne-Hallpike test was converted into an Pj maneuver. She had significant improvement in her vertigo after the Pj maneuver. See discharge instructions for further discussion. Patient exhibited no neurologic deficits and appeared to have a classic type of BPPV. Patient handout for home Pj maneuver was given with the discharge instructions. Departure Impression Primary Impression: BPPV (benign paroxysmal positional vertigo) Qualified Codes: H81.12 - Benign paroxysmal vertigo, left ear Additional Impression: Acute headache Qualified Codes: R51.9 - Headache, unspecified Disposition: HOME, SELF-CARE Condition: Improved Departure-Patient Inst. Decision time for Depature: 13:01 Referrals: NILE MEDEL MD (PCP/Family) Primary Care Physician Patient Instructions: Vertigo ED Add. Discharge Instructions: Drink plenty of clear liquids to stay well-hydrated. For headache you may take ibuprofen up to 600 mg every 6 hours as needed and/or Tylenol (acetaminophen) up to 1000 mg every 6 hours as needed. Use the Zofran (ondansetron) as prescribed for nausea or vomiting. Use the meclizine as prescribed for dizziness. For the next few days avoid sudden movements of your head or body as these movements may trigger recurrence of vertigo. You may repeat the Pj maneuver at home if symptoms of vertigo return. Return to care if you have worsening symptoms despite following these instructions. All discharge instructions reviewed with patient and/or family. Voiced understanding. Scripts Ondansetron (Ondansetron Odt) 4 Mg Tab.rapdis 4 MG SL Q4H PRN for NAUSEA/VOMITING, #10 TAB 1 Refill Prov: WILIAM VIDAL MD 08/07/22 Meclizine HCl (Meclizine HCl) 25 Mg Tablet 25 MG PO Q6H PRN for DIZZINESS, #20 TAB Prov: WILIAM VIDAL MD 08/07/22 Copy Copies To 1: NILE MEDEL MD, JOSHUA T MD Aug 07, 2022 09:56
[2022-08-07 10:09] LABS: BASOPHILS % (AUTO) 0 % (0-10); EOSINOPHILS # (AUTO) 0.1 10^3/uL (0.0-0.3); EOSINOPHILS % (AUTO) 1 % (0-10); HEMATOCRIT 39 % (35-52); HEMOGLOBIN 13.4 g/dL (11.5-16.0); LYMPHOCYTES # (AUTO) 1.3 10^3/uL (1.0-4.0); LYMPHOCYTES % (AUTO) 17 % (12-44); MEAN CORPUSCULAR HEMOGLOBIN 31 pg (25-34); MEAN CORPUSCULAR HGB CONC 34 g/dL (32-36); MEAN CORPUSCULAR VOLUME 90 fL (80-99); MEAN PLATELET VOLUME 8.7 fL (9.0-12.2); MONOCYTES # (AUTO) 0.4 10^3/uL (0.0-1.0); MONOCYTES % (AUTO) 5 % (0-12); NEUTROPHILS # (AUTO) 6.1 10^3/uL (1.8-7.8); NEUTROPHILS % (AUTO) 76 % (42-75); PLATELET COUNT 276 10^3/uL (130-400)
[2022-08-07 10:19] LABS: POTASSIUM 4.1 MMOL/L (3.6-5.0)
[2022-08-07 10:21] LABS: CALCIUM 8.9 MG/DL (8.5-10.1)
[2022-08-07 10:22] LABS: TOTAL PROTEIN 6.9 GM/DL (6.4-8.2)
[2022-08-07 10:24] LABS: BILIRUBIN,TOTAL 0.5 MG/DL (0.1-1.0)
[2022-08-07 10:25] LABS: CREATININE SERUM 0.71 MG/DL (0.60-1.30)
[2022-08-07 10:28] LABS: MAGNESIUM 2.1 MG/DL (1.6-2.4)
[2022-08-07] MEDS ORDERED: MECL-149 PO (13:03)
[2022-08-07] MEDS ORDERED: ONDA4TAB11 SL (13:03)
[2022-08-07 13:15] VITALS: BP 105/73
== END 2022-08-07 13:20 | disposition home or self-care (01) ==
LOC: EDUNIT# 08:28 → ER 08:31
DX: H81.10 Benign paroxysmal vertigo, unspecified ear (principal); R51.9 Headache, unspecified; Z20.822 Contact with and (suspected) exposure to COVID-19
CPT/HCPCS: 36415; 80053; 83735; 84703; 85025; 87636

== ENCOUNTER 2022-08-09 08:13 | Emergency (ER) | payer SELFPAY ==
[~2022-08-09] VITALS: Ht 170 cm; Wt 123.0 kg
[~2022-08-09 08:13] MED LIST changes: +MECL-149 PO; +ONDA4TAB11 SL
[2022-08-09] MEDS ORDERED: NS IV 1000 ML 1,000 ML IV STA (09:02)
--- NOTE | 2022-08-09 09:10 | ED Headache ---
General Chief Complaint: Head/Cervical Problems Stated Complaint: DIZZINESS Nursing Triage Note: Patient reports headache and dizziness since Friday 08/04. Patient was seen in this ER 2 days ago for the same symptoms. Patient reports no improvement in symptoms. Pt also c/o intermittent nausea. Source: patient, certified court interpreter Exam Limitations: no limitations History of Present Illness Date Seen by Provider: Aug 09, 2022 Time Seen by Provider: 08:30 Initial Comments 36-year-old female with no pertinent past medical history coming in due to several days of feeling like the room is spinning, headache, nausea. Was seen in the ER and diagnosed with BPPV. She is been taking meclizine and Zofran which helped somewhat. If she is sitting still its better, when she moves her head gets worse. She has chronic headaches, and feels like 1 of those. Denies any neck stiffness or fever. Denies any vision changes otherwise, weakness, numbness, chest pain, shortness of breath, or any other concerns. LMP was in the last month Allergies and Home Medications Allergies Coded Allergies: topiramate (Verified Allergy, Unknown, 04/02/20) Patient Home Medication List Home Medication List Reviewed: Yes Amoxicillin/Potassium Clav (Augmentin 875-125 Tablet) 1 Each Tablet, 1 EACH PO BID Prescribed by: MARI WOODARD on 04/02/20 2242 Hydrocodone Bit/Acetaminophen (Lortab 7.5 Mg Tablet) 1 Each Tablet, 1-2 EACH PO Q4H Prescribed by: ASHLEY GUSTAFSON on 11/25/16 1504 Meclizine HCl (Meclizine HCl) 25 Mg Tablet, 25 MG PO Q6H PRN for DIZZINESS Prescribed by: WILIAM MARIN on 08/07/22 1303 Methocarbamol (Methocarbamol) 750 Mg Tablet, 750 MG PO Q6-8HR Prescribed by: MARGO JASON on 10/02/21 1014 Naproxen (Naprosyn) 500 Mg Tablet, 500 MG PO BID Prescribed by: MARGO JASON on 10/02/21 1014 Ondansetron (Ondansetron Odt) 4 Mg Tab.rapdis, 4 MG SL Q4H PRN for NAUSEA/VOMITING Prescribed by: WILIAM MARIN on 08/07/22 1303 Review of Systems Review of Systems Constitutional: No fever Eyes: See HPI Ears, Nose, Mouth, Throat: no symptoms reported Respiratory: no symptoms reported Cardiovascular: no symptoms reported Gastrointestinal: no symptoms reported Genitourinary: no symptoms reported Musculoskeletal: no symptoms reported Skin: no symptoms reported Psychiatric/Neurological: See HPI Past Rsypxcn-Eezqqp-Cayvje Hx Patient Social History Tobacco Use?: No Substance use?: No Alcohol Use?: No Pt feels they are or have been: No Immunizations Up To Date Tetanus Booster (TDap): Less than 5yrs Seasonal Allergies Seasonal Allergies: No Past Medical History Surgery/Hospitalization HX: gallbladder Surgeries: Yes Section, Gallbladder Respiratory: No Cardiac: No Neurological: No Reproductive Disorders: No Female Reproductive Disorders: Denies Sexually Transmitted Disease: No HIV/AIDS: No Genitourinary: Yes (August 2016) Kidney Infection Gastrointestinal: No Musculoskeletal: No Endocrine: No HEENT: No Loss of Vision: Denies Hearing Impairment: Denies Cancer: No Psychosocial: No Integumentary: No Blood Disorders: No Adverse Reaction/Blood Tranf: No Family Medical History Patient reports no known family medical history. No Pertinent Family Hx Physical Exam Vital Signs Vital Signs - First Documented 08/09/22 08:48 Temp 36.9 Pulse 70 Resp 18 B/P (MAP) 126/67 (86) Pulse Ox 97 O2 Delivery Room Air Capillary Refill : Less Than 3 Seconds Height, Weight, BMI Height: 5'6.00" Weight: 237lbs. 0.0oz. 107.577369dm; 42.00 BMI Method:Stated General Appearance: WD/WN, no apparent distress HEENT: PERRL/EOMI, normal ENT inspection, pharynx normal Neck: non-tender, full range of motion, supple, normal inspection Cardiovascular: regular rate, rhythm, no edema, no murmur Respiratory: chest non-tender, lungs clear, normal breath sounds, no respiratory distress, no accessory muscle use Gastrointestinal: normal bowel sounds, non tender, soft; No distended, No guarding, No rebound Back: normal inspection, no CVA tenderness, no vertebral tenderness Extremities: normal range of motion, non-tender, normal inspection, no pedal edema, no calf tenderness, normal capillary refill Psychiatric: alert, oriented x 3 Crainal Nerves: normal hearing, normal speech, PERRL Coordination/Gait: normal finger to nose, normal gait Motor/Sensory: no motor deficit, no sensory deficit, no pronator drift Skin: normal color, warm/dry Progress/Results/Core Measures Results/Orders My Orders Orders - CALEB ROGERS MD Prochlorperazine Injection (Compazine In (08/09/22 09:15) Diphenhydramine Injection (Benadryl Inje (08/09/22 09:15) Ketorolac Injection (Toradol Injection) (08/09/22 09:15) Ns Iv 1000 Ml (Sodium Chloride 0.9%) (08/09/22 09:02) Meclizine Tablet (Antivert Tablet) (08/09/22 09:15) Ct Head Wo (08/09/22 09:02) Medications Given in ED Current Medications Medications Dose Ordered Sig/Jayesh Route Start Time Stop Time Status Last Admin Dose Admin Diphenhydramine HCl 25 mg ONCE ONCE IVP 08/09/22 09:15 08/09/22 09:16 DC 08/09/22 09:20 25 MG Ketorolac Tromethamine 15 mg ONCE ONCE IVP 08/09/22 09:15 08/09/22 09:16 DC 08/09/22 09:21 15 MG Meclizine HCl 25 mg ONCE ONCE PO 08/09/22 09:15 08/09/22 09:16 DC 08/09/22 09:21 25 MG Prochlorperazine Edisylate 10 mg ONCE ONCE IV 08/09/22 09:15 08/09/22 09:16 DC 08/09/22 09:21 10 MG Vital Signs/I&O 08/09/22 08:48 Temp 36.9 Pulse 70 Resp 18 B/P (MAP) 126/67 (86) Pulse Ox 97 O2 Delivery Room Air Blood Pressure Mean: 86 Progress Progress Note : Progress Note 36-year-old female presenting for dizziness. ABCs were intact and vitals were stable on presentation. Physical exam significant for normal neurologic exam with no focal deficits. She does have vertigo with any sharp movements of her head which quickly gets better. Does fit BPPV which she was diagnosed with the other day. I reviewed her lab work from a couple days ago in the ER which was reassuring including negative test. CT head ordered today for any large mass or bleed which was negative on my interpretation as well as the radiologist but nothing acute that was concerning. She was given IV fluids, Zofran, as well as meclizine. Perform the Pj maneuver which did help her symptoms. Discussed this at length with an certified court interpreter. Discussed that she would need to follow-up with ENT. Sent prescriptions for Zyrtec to see if that would help as well. I believe she is otherwise stable for discharge with outpatient follow-up. She was at home with strict return precautions. Diagnostic Imaging Diagonstic Imaging: CT (head) Comments [facility], [place] NAME: VALERIO CARDOSO [facility] REC#: [id number] PT STATUS: REG ER : 1985 PHYSICIAN: CALEB ROGERS MD ADMIT DATE: 08/09/22/ER Signed Date of Exam:08/09/22 CT HEAD WO PROCEDURE: CT head without contrast. TECHNIQUE: Multiple contiguous axial images were obtained through the brain without the use of intravenous contrast. Auto Exposure Controls were utilized during the CT exam to meet ALARA standards for radiation dose reduction. INDICATION: Headache and dizziness COMPARISON: CT of the head 01/21/2022. FINDINGS: The juan-white matter differentiation is preserved. No acute intracranial hemorrhage. The ventricles and cortical sulci are normal. No intracranial mass or fluid collection. No midline shift. The midline craniocervical structures are normal. No Chiari malformation. The sella and pituitary gland are normal. 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 The globes and orbits are normal. Mild mucosal thickening within the right maxillary sinus and left sphenoid sinus. Redemonstration of small right ethmoid osteoma. No acute osseous findings. IMPRESSION: No acute intracranial hemorrhage. No large vascular territory decker-white loss. No intracranial mass, midline shift, or hydrocephalus. Mucosal thickening within the right maxillary and left sphenoid sinus may be seen with sinusitis. 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 Dictated by: Dictated on workstation # [id number] Dict: 08/09/22 0951 Trans: 08/09/22 0956 [facility] [place] [id number] Interpreted by: YANNI LANE DO Electronically signed by: YANNI LANE DO 08/09/22 0956 Departure Impression Primary Impression: BPPV (benign paroxysmal positional vertigo) Qualified Codes: H81.12 - Benign paroxysmal vertigo, left ear Disposition: 01 HOME, SELF-CARE Condition: Stable Departure-Patient Inst. Decision time for Depature: 10:29 Referrals: MARYELLEN HARDEN MD, HOLLY R MD (PCP/Family) Primary Care Physician Patient Instructions: Vertigo ED Add. Discharge Instructions: You do have BPPV. This is very difficult to treat. You can try doing the Pj maneuver which we did in the ER. You can watch this on YouTube if you forget how to do it. Follow-up with Dr. Harden life science research assistant if this is not improving after the next week. The meclizine is to help with the vertigo-like symptoms, ondansetron for the nausea which you are prescribed during her last visit. We will also prescribe Zyrtec for you to take daily and a new nausea medicine, promethazine to try to help as well. Usted tiene VPPB. [place] es muy difcil de tratar. Puedes intentar hacer la maniobra de Pj que hicimos en la bob de emergencias. Puedes cricket esto en YouTube si olvidas document reviewer hacerlo. Seguimiento con el Dr. Harden especialista en odo si esto no mejora despus de la prxima semana. La meclizina es para ayudar con los sntomas similares al vrtigo, ondansetrn para las nuseas que se le recetaron jovana segura ltima visita. Tambin le recetaremos Zyrtec para que lo tome diariamente y un nuevo medicamento para las nuseas, prometazina para tratar de ayudar tambin. Scripts Promethazine HCl (Promethazine Tablet) 25 Mg Tablet 25 MG PO Q8H PRN for NAUSEA/VOMITING for 5 Days, #15 TAB 0 Refills Prov: CALEB ROGERS MD 08/09/22 Cetirizine HCl (Zyrtec) 10 Mg Tablet 10 MG PO DAILY for 30 Days, #30 TAB Prov: CALEB ROGERS MD 08/09/22 Work/School Note: Work Release Form Date Seen in the Emergency Department: Aug 09, 2022 Return to Work: Aug 12, 2022 Restrictions: Return-No Vomiting(24hrs) CALEB ROGERS MD Aug 09, 2022 09:10
[2022-08-09] MEDS ORDERED: KETOROLAC 30 MG/ML VIAL IVP ONE (09:15)
[2022-08-09] MEDS ORDERED: diphenhydrAMINE 50 MG/ML INJ (BENADRYL) IVP ONE (09:15)
[2022-08-09] MEDS ORDERED: MECLIZINE 25 MG (ANTIVERT) TAB PO ONE (09:15)
[2022-08-09] MEDS ORDERED: PROCHLORPERAZINE 10 MG/2ML INJ (COMPAZINE) IV ONE (09:15)
--- NOTE | 2022-08-09 09:57 | Diagnostic Imaging Report ---
PROCEDURE: CT head without contrast. TECHNIQUE: Multiple contiguous axial images were obtained through the brain without the use of intravenous contrast. Auto Exposure Controls were utilized during the CT exam to meet ALARA standards for radiation dose reduction. INDICATION: Headache and dizziness COMPARISON: CT of the head 01/21/2022. FINDINGS: The juan-white matter differentiation is preserved. No acute intracranial hemorrhage. The ventricles and cortical sulci are normal. No intracranial mass or fluid collection. No midline shift. The midline craniocervical structures are normal. No Chiari malformation. The sella and pituitary gland are normal. 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 The globes and orbits are normal. Mild mucosal thickening within the right maxillary sinus and left sphenoid sinus. Redemonstration of small right ethmoid osteoma. No acute osseous findings. IMPRESSION: No acute intracranial hemorrhage. No large vascular territory decker-white loss. No intracranial mass, midline shift, or hydrocephalus. Mucosal thickening within the right maxillary and left sphenoid sinus may be seen with sinusitis. 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 Dictated by: Dictated on workstation # [id number]
[2022-08-09] MEDS ORDERED: PROM25TA14 PO (10:31)
[2022-08-09] MEDS ORDERED: CETI10TA49 PO (10:31)
[2022-08-09 10:34] VITALS: BP 135/87
== END 2022-08-09 10:40 | disposition home or self-care (01) ==
LOC: EDUNIT# 08:13 → ER 08:15
DX: H81.10 Benign paroxysmal vertigo, unspecified ear (principal); R51.9 Headache, unspecified
CPT/HCPCS: 70450